=== PATIENT | male | born 1965 | race African-American/Black ===

== ENCOUNTER 2022-07-10 20:55 | Emergency (ER) | payer OTHER ==
[~2022-07-10] VITALS: Ht 182.9 cm; Wt 63.5 kg
--- NOTE | 2022-07-10 21:04 | NUR ---
pt biba care#[id number] fr home c/o 12/15 r flank pain x 1 wk now. pmh: gall stones, htn, dm, asthma. nkda.
[2022-07-10 21:05] VITALS: BP_SYST 122
--- NOTE | 2022-07-10 21:21 | NUR ---
Patient to ER bed 07 to gown for evaluation. Side rails up. Report given to AMADEO Yanes
[2022-07-10] MEDS ORDERED: NACL 0.9% 1,000 ML IV ONE (21:30)
[2022-07-10] MEDS ORDERED: KETOROLAC TROMETHAMINE 30 MG VIAL IVP ONE (21:30)
--- NOTE | 2022-07-10 21:30 | NUR ---
ER Dr. Skaggs at bedside examining patient.
[2022-07-10 21:53] LABS: BILIRUBIN,URINE NEGATIVE (NEGATIVE); BLOOD, URINE 2+ (NEGATIVE); COLOR,URINE YELLOW (YELLOW); GLUCOSE,URINE 3+ (NEGATIVE); KETONES,URINE TRACE (NEGATIVE); LEUKOCYTE ESTERASE ,URINE TRACE (NEGATIVE); NITRITE, URINE NEGATIVE (NEGATIVE); PROTEIN URINE TRACE (NEGATIVE)
[2022-07-10 22:02] LABS: CLARITY/URINE HAZY (CLEAR)
[2022-07-10 22:23] LABS: BACTERIA,URINE FEW /HPF (None Seen)
[2022-07-10 22:24] LABS: MUCUS,URINE None Seen /LPF (None Seen); URINE AMORPHOUS URATE 1+ /HPF (None Seen); WBC,URINE 20-50 /HPF (0-3)
[2022-07-10 23:11] LABS: BASOPHILS % (AUTO) 0.3 % (0.0-2.0); EOSINOPHILS # (AUTO) 0.1 K/uL (0.0-0.4); HEMATOCRIT 30.6 % (36-54); HEMOGLOBIN 10.1 g/dL (14.0-18.0); LYMPHOCYTES # (AUTO) 0.9 K/uL (1.0-5.5); LYMPHOCYTES % (AUTO) 8.3 % (20.5-51.5); MEAN CORPUSCULAR HEMOGLOBIN 33 pg (27-31); MEAN CORPUSCULAR HGB CONC 33 % (32-36); MEAN CORPUSCULAR VOLUME 98 fL (79.0-98.0); MONOCYTES # (AUTO) 1.1 K/uL (0.0-1.0); MONOCYTES % (AUTO) 9.5 % (1.7-9.3); NEUTROPHILS % (AUTO) 80.9 % (40.0-70.0); PLATELET COUNT (AUTO) 102 K/uL (130-430); RED BLOOD CELL COUNT(AUTO) 3.11 MIL/uL (4.2-6.2); RED CELL DISTRIBUTION WIDTH 16.3 % (9.0-15.0); WHITE BLOOD COUNT (AUTO) 11.2 K/uL (4.8-10.8)
[2022-07-10 23:19] LABS: CALCIUM 8.6 mg/dL (8.4-11.0); CREATININE 0.78 mg/dL (0.55-1.30)
[2022-07-10 23:23] LABS: ALBUMIN 1.3 g/dL (3.4-4.8); TOTAL BILIRUBIN 2.4 mg/dL (0.0-1.0)
[2022-07-11] MEDS ORDERED: CIPR500T5 PO (00:39)
[2022-07-11] MEDS ORDERED: IBUP-1969 PO (00:39)
[2022-07-11] MEDS ORDERED: HYDR-3917 PO (00:39)
[2022-07-11 01:19] VITALS: BP_SYST 141
--- NOTE | 2022-07-11 01:20 | NUR ---
Patient given written and verbal discharge instructions and verbalizes understanding. ER MD Dr. Skaggs discussed with patient the results and treatment provided. Patient in stable condition. ID arm band removed. IV catheter removed intact and dressing applied, no active bleeding. Rx of given. Patient educated on pain management and to follow up with PMD. Pain Scale 5/10. Opportunity for questions provided and answered. Medication side effect fact sheet provided. Pt was arranged for [facility] and is waiting in the waiting room at this time. [facility] ETA about 20 mins.
[2022-07-12] MEDS ORDERED: ACET-2634 PO (05:08)
[2022-07-12] MEDS ORDERED: LIDO1ADH22 TP (05:08)
== END 2022-07-11 01:20 | disposition home or self-care (01) ==
LOC: SED 20:55
DX: N39.0 Urinary tract infection, site not specified (principal); N20.0 Calculus of kidney; R10.9 Unspecified abdominal pain; E11.9 Type 2 diabetes mellitus without complications; Z79.899 Other long term (current) drug therapy
CPT/HCPCS: 99285; 74176; 96374; 96361; 80053; 81000; 83690; 85025; 87086; 87186; 36415; 76376; J1885; J7030

== ENCOUNTER 2022-07-12 04:53 | Emergency (ER) | payer OTHER ==
[~2022-07-12 04:53] MED LIST: CIPR500T5 PO; HYDR-3917 PO; IBUP-1969 PO
[2022-07-12 04:59] VITALS: BP_SYST 163
[2022-07-12] MEDS ORDERED: ACET-2634 PO (05:08)
[2022-07-12] MEDS ORDERED: LIDO1ADH22 TP (05:08)
[2022-07-12] MEDS ORDERED: KETOROLAC TROMETHAMINE 15 MG VIAL IM ONE (05:15)
[2022-07-12 05:44] VITALS: BP_SYST 142
== END 2022-07-12 05:44 | disposition home or self-care (01) ==
LOC: SED 04:53
DX: M54.50 Low back pain, unspecified (principal); E11.9 Type 2 diabetes mellitus without complications; W01.0XXA Fall on same level from slipping, tripping and stumbling without subsequent striking against object, initial encounter; Y93.89 Activity, other specified; Y92.89 Other specified places as the place of occurrence of the external cause; Y99.8 Other external cause status
CPT/HCPCS: 99283; 96372; J1885

== ENCOUNTER 2022-07-19 11:31 | Inpatient (IN) | payer OTHER ==
[~2022-07-19] VITALS: Ht 175.3 cm; Wt 77.1 kg
[~2022-07-19 11:31] MED LIST changes: +ACET-2634 PO; +LIDO1ADH22 TP
--- NOTE | 2022-07-19 11:42 | NUR ---
accucheck 454
[2022-07-19 11:46] VITALS: BP_SYST 170
--- NOTE | 2022-07-19 11:50 | NUR ---
Placed in room 01 . Placed on looper fixer, blood pressure machine and pulse oximeter. To gown for exam. Side rails up. Report given to AMADEO DOW.
--- NOTE | 2022-07-19 11:51 | NUR ---
pt biba awake and alert aox2. PT COMING FROM HOME. C/O HIGH BLOOD SUGAR AND ABDOMINAL PAIN. PT BS WAS 454 AT BEDSIDE. PT HAS HX OF DM2, HTN, HEP C, ASTHMA.
--- NOTE | 2022-07-19 11:51 | NUR ---
MD DR ALONZO AT BEDSIDE
[2022-07-19] MEDS ORDERED: NACL 0.9% 1,000 ML IV ONE ×2 (12:00→13:00)
[2022-07-19] MEDS ORDERED: ONDANSETRON HCL 4 MG/2 ML VIAL IVP ONE (12:00)
[2022-07-19 12:15] LABS: BASOPHILS % (AUTO) 0.2 % (0.0-2.0); EOSINOPHILS % (AUTO) 0.1 % (0.0-4.0); HEMATOCRIT 27.1 % (36-54); HEMOGLOBIN 8.7 g/dL (14.0-18.0); LYMPHOCYTES # (AUTO) 1.2 K/uL (1.0-5.5); LYMPHOCYTES % (AUTO) 7.2 % (20.5-51.5); MEAN CORPUSCULAR HEMOGLOBIN 32 pg (27-31); MEAN CORPUSCULAR HGB CONC 32 % (32-36); MEAN CORPUSCULAR VOLUME 100 fL (79.0-98.0); MONOCYTES % (AUTO) 5.9 % (1.7-9.3); NEUTROPHILS # (AUTO) 13.8 K/uL (1.8-7.7); NEUTROPHILS % (AUTO) 86.6 % (40.0-70.0); PLATELET COUNT (AUTO) 117 K/uL (130-430); RED BLOOD CELL COUNT(AUTO) 2.72 MIL/uL (4.2-6.2); RED CELL DISTRIBUTION WIDTH 16.8 % (9.0-15.0)
[2022-07-19 12:43] LABS: ALANINE AMINOTRANSFERASE 30 U/L (12-78); ALBUMIN 1.3 g/dL (3.4-4.8); ANION GAP 7 (5-15); ASPARTATE AMINOTRANSFERASE 59 U/L (10-37); CHLORIDE 105 mmol/L (98-107); CREATININE 1.06 mg/dL (0.55-1.30); GFR AFRICAN AMERICAN 93 mL/min (>90); LIPASE 30 U/L (73-393); TOTAL BILIRUBIN 3.8 mg/dL (0.0-1.0); UREA NITROGEN, BLOOD 28 mg/dL (8-21)
[2022-07-19 12:45] LABS: GLUCOSE 515 mg/dL (70-99)
[2022-07-19 12:55] LABS: BILIRUBIN,URINE NEGATIVE (NEGATIVE); BLOOD, URINE 1+ (NEGATIVE); CLARITY/URINE CLEAR (CLEAR); COLOR,URINE YELLOW (YELLOW); GLUCOSE,URINE 3+ (NEGATIVE); KETONES,URINE TRACE (NEGATIVE); LEUKOCYTE ESTERASE ,URINE NEGATIVE (NEGATIVE); NITRITE, URINE NEGATIVE (NEGATIVE); PH,URINE 5.5 (5.0-8.0); PROTEIN URINE NEGATIVE (NEGATIVE)
[2022-07-19] MEDS ORDERED: cefTRIAXone 1 GM VIAL ONE (12:59)
[2022-07-19] MEDS ORDERED: INSULIN REGULAR, HUMAN 10 UNITS/0.1 ML, 3 ML VIAL IVP ONE (13:00)
[2022-07-19] MEDS ORDERED: cefTRIAXone 1 GM in D5W 50 ML IV ONE (13:00)
[2022-07-19 13:10] LABS: ACETONE, SERUM POSITIVE (NEGATIVE)
[2022-07-19 13:56] LABS: BACTERIA,URINE None Seen /HPF (None Seen); WBC,URINE 0-3 /HPF (0-3); YEAST,URINE Rare /HPF (None Seen)
[2022-07-19] MEDS ORDERED: LIDOCAINE PATCH 5% 1 EA TP ONE (14:00)
[2022-07-19] MEDS ORDERED: MORPHINE 2 MG/ML INJ. SYRINGE IVP ONE (14:00)
--- NOTE | 2022-07-19 14:17 | NUR ---
ACCUCHECK, BLOOD SUGAR 342 NOTIFIED AMADEO DOW
--- NOTE | 2022-07-19 14:43 | NUR ---
PT REFUSED COVID SWAB, STATING HE "DOESN'T NEED IT".
[2022-07-19] MEDS ORDERED: DEXTROSE 50% JECT 50 ML DISP.SYRIN IVP PRN (15:00)
--- NOTE | 2022-07-19 17:23 | NUR ---
Admit bed requested Patient will be admitted to care of Dr. STUART. Admitted to TELE unit. Diagnosis HYPERCLYCEMIA/ DEHYDRATION Inpatient (Yes or No) YES Observation (Yes or No) NO Orientation concerns or request close to nursing station (Yes or No) NO Covid Status NEG On vent or bipap NO Isolation requirements NO Needs a sitter NO From Home (Yes or if No enter name of facility) HOME Requires Dialysis (Yes or No) NO Med Rec Completed (Yes of No) NO
--- NOTE | 2022-07-19 17:28 | NUR ---
MESSAGE LEFT FOR NEXT OF KIN , YUNIER WONG, TO GATHER MED REC INFO. NO ANSWER.
--- NOTE | 2022-07-19 17:30 | NUR ---
ATTEMP TO CALL FOR PT MED REC, UNSUCEESFUL. NO MESSAGE WAS LEFT DUE TO FULL MAILBOX
[2022-07-19] MEDS ORDERED: INSULIN REGULAR, HUMAN 10 UNITS/0.1 ML, 3 ML VIAL ONE (18:02)
[2022-07-19] MEDS: INSULIN REGULAR, HUMAN 100 UNITS/ML, 3 ML VIAL (humuLIN R) SUBCUT PRN ×2 (18:06→23:22)
[2022-07-19] MEDS: NACL 0.9% 1,000 ML IV SCH ×3 (18:07→21:06)
[2022-07-19 18:35] VITALS: BP_SYST 159
--- NOTE | 2022-07-19 18:55 | NUR ---
Patient will be admitted to care of DR STUART. Admitted to TELE unit. Will go to room 118B. Belongings list completed. Complete and up to date summary report printed. SBAR report to be given at bedside with opportunity for questions.
[2022-07-19 19:11] LABS: BARBITURATE, URINE NEGATIVE (NEG <=200); BENZODIAZEPINE, URINE NEGATIVE (NEG <=150); CANNABINOID, URINE NEGATIVE (NEG <=50); COCAINE, URINE NEGATIVE (NEG <=150); METHAMPHETAMINES SCREEN,URINE POSITIVE (NEG <=500); OPIATE, URINE NEGATIVE (NEG <=100); PHENCYCLIDINE SCREEN,URINE NEGATIVE (NEG <=25); URINE AMPHETAMINE POSITIVE (NEG <=500); URINE METHADONE NEGATIVE (NEG <=200); URINE OXYCODONE SCREEN NEGATIVE (NEG <=100)
[2022-07-19 19:12] LABS: UR TRICYCLIC ANTIDEPRESSANTS NEGATIVE (NEG <=300); URINE PROPOXYPHENE SCREEN NEGATIVE (NEG <=300)
--- NOTE | 2022-07-19 19:29 | NUR ---
admit to unit/ closing note Patient arrived to unit at 1835 via gurney from ER. Patient is Aox2. Patient resting, eyes closed, aroused to name. No ss of distress noted. Breathing is even and nonlabored, on room air. No facial grimace noted. NO SOB noted. Patient has been cleaned and repositioned. IV appears to be patent. No ss of infiltration noted. Patient oriented to room and use of call light. Patient is stable at this time. Vital signs obtained, as documented. Bed is locked, alarm on, and at lowest position. Call light within reach. report given to AMADEO Morales.
--- NOTE | 2022-07-19 19:38 | NUR ---
belongings patient's belongings have been documented. Patient has igloo lunch pail with home medications at bedside inside grocery that needs to be reconciled and imputed. Patient also has belongings of value silver chain, with patient black wallet with money ($120 total- 5x20's, 3x5's, and 5x1's) and cards, ID and Social security card. Called and spoke to security to have items documented and signed into safe. reported to noc nurse and charge nurse. Addendum: 07/19/22 at 2009 by Christina Hoover LVN belongings patient's belongings have been documented. Patient has igloo lunch pail with home medications at bedside inside grocery that needs to be reconciled and imputed. Patient also has belongings of value silver chain, with patient black wallet with money ($120 total- 5x20's, 3x5's, and 5x1's) and cards, ID and Social security card. Called and spoke to security to have items documented and signed into safe. reported to [facility] nurse and charge nurse. security reviewed and sealed items in envelope. item has been put in safe. copy of item sheet from security in patient's chart. noc nurse and charge nurse aware.
[2022-07-19 20:00] VITALS: BP_SYST 155
[2022-07-19] MEDS ORDERED: LORazepam 2 MG/ML VIAL IVP PRN (23:00)
[2022-07-20] VITALS (7 sets, daily range): BP systolic 145–159
--- NOTE | 2022-07-20 | NUR ---
patients medication counted and sealed in an envelop .assisted with a CHG bath ,incontinent of urine.had some yoghurt.ivf in progress as ordered
--- NOTE | 2022-07-20 02:00 | NUR ---
family update that pt has gallbladder
[2022-07-20] MEDS: NACL 0.9% 1,000 ML IV SCH ×3 (02:10→16:53)
--- NOTE | 2022-07-20 03:30 | NUR ---
Accuchek 146. pt states he feels alot better. awaits BFAST this morning
--- NOTE | 2022-07-20 04:41 | NUR ---
communicating denies pain .pt informed of cares involved for her treatment blood sugar done and updated
--- NOTE | 2022-07-20 08:00 | NUR ---
Opening Notes Patient is Aox3. Confused. No ss of distress noted. Breathing is even and nonlabored, on room air. No SOB noted. IV patent. IVF running. Vital signs obtained, as documented. Patient has been cleaned and repositioned. Bed is locked, alarm on, and at lowest position. Call light within reach.
[2022-07-20] MEDS: INSULIN REGULAR, HUMAN 100 UNITS/ML, 3 ML VIAL (humuLIN R) SUBCUT PRN ×4 (09:35→21:06)
--- NOTE | 2022-07-20 09:39 | NUR ---
NOTES AM BLOOD GLUCOSE WAS 220 MG/DL. 4 UNITS OF REGULAR INSULIN ADMINISTERED. PATIENT MORE AWAKE AND TALKING. IVF RUNNING. IV PATENT. ALL SAFETY PRECAUTIONS IN PLACE AND CALL LIGHT WITHIN REACH.
--- NOTE | 2022-07-20 12:00 | NUR ---
notes Patient is resting, eyes closed. Breathing is even and nonlabored, on room air. No SOB noted. No facial grimace noted. All safety precautions in place and call light within reach.
--- NOTE | 2022-07-20 16:00 | NUR ---
notes patient has been cleaned and repositioned. No distress noted. No facial grimace noted. Breathing is even and nonlabored, room air. NO SOB. Safety precautions in place and call light within reach.
[2022-07-20 16:53] LABS: BASOPHILS % (AUTO) 0.3 % (0.0-2.0); EOSINOPHILS # (AUTO) 0.1 K/uL (0.0-0.4); EOSINOPHILS % (AUTO) 0.4 % (0.0-4.0); HEMATOCRIT 28.2 % (36-54); HEMOGLOBIN 9.1 g/dL (14.0-18.0); LYMPHOCYTES # (AUTO) 1.3 K/uL (1.0-5.5); LYMPHOCYTES % (AUTO) 8.8 % (20.5-51.5); MEAN CORPUSCULAR HEMOGLOBIN 32 pg (27-31); MEAN CORPUSCULAR HGB CONC 32 % (32-36); MEAN CORPUSCULAR VOLUME 99 fL (79.0-98.0); MONOCYTES # (AUTO) 0.7 K/uL (0.0-1.0); MONOCYTES % (AUTO) 4.8 % (1.7-9.3); NEUTROPHILS # (AUTO) 12.7 K/uL (1.8-7.7); NEUTROPHILS % (AUTO) 85.7 % (40.0-70.0); RED BLOOD CELL COUNT(AUTO) 2.86 MIL/uL (4.2-6.2); RED CELL DISTRIBUTION WIDTH 16.8 % (9.0-15.0); WHITE BLOOD COUNT (AUTO) 14.8 K/uL (4.8-10.8)
[2022-07-20 16:59] LABS: CALCIUM 9.2 mg/dL (8.4-11.0); CREATININE 0.87 mg/dL (0.55-1.30)
[2022-07-20 17:08] LABS: PLATELET COUNT (AUTO) 108 K/uL (130-430)
[2022-07-20] MEDS ORDERED: ACETAMINOPHEN 325 MG TABLET PO PRN (18:15)
[2022-07-20] MEDS ORDERED: NALOXONE HCL 0.4 MG/ML AMP (NARCAN) IVP PRN (18:15)
[2022-07-20] MEDS ORDERED: HYDROcodone/ACETAMIN 10-325 MG TAB PO PRN (18:15)
[2022-07-20] MEDS ORDERED: HYDROcodone/ACETAMIN 5-325 MG TAB (NORCO/ VICODIN) PO PRN (18:15)
--- NOTE | 2022-07-20 18:22 | NUR ---
CONSULTATION PAGED/CALLED Reason for Consultation: BACTREMIA Person Who was Notified: YG, ANSWERING PUBLIC WORKS MANAGER Consulting Physician: DR. FAUSTIN Hooker Machine Tender Specialty: ID Ordering Physician: SHARON
--- NOTE | 2022-07-20 18:52 | NUR ---
CLOSING NOTES PATIENT IS RESTING, EYES CLOSED. NO SS OF DISTRESS NOTED. BREATHING IS EVEN AND NONLABORED, ON ROOM AIR. NO SOB NOTED. PATIENT DENIES SEVERE PAIN. IV PATENT. IVF RUNNING. PATIENT IN A COMFORTABLE POSITION. BED IS LOCKED, ALARM ON, AND AT LOWEST POSITION. CALL LIGHT WITHIN REACH. PATIENT IS STABLE. ALL NEEDS MET.
--- NOTE | 2022-07-20 19:30 | NUR ---
OPENING NOTE PT LYING IN BED AND EYES CLOSED. A/OX1 (PERSON). BREATHING EVEN AND NONLABORED. FOUND BED WET AND CHANGED ALL LINENS AND PROVIDED INCONTINENT CARE. PT TOLERATED CHANGING POSITION. BP 151/81. WILL KEEP MONITOR BP. NO S/S OF ACUTE DISTRESS OR PAIN. BED ALARM ON. SAFETY CHECKS IN PLACE. CALL LIGHT WITHIN REACH. CONTINUE TO MONITOR
[2022-07-20] MEDS ORDERED: VANCOMYCIN HCL 1 GM/NS PREMIX 250 ML IV ONE (20:00)
[2022-07-20] MEDS ORDERED: VANCOMYCIN HCL 1000 MG/VIAL IV ONE (20:54)
--- NOTE | 2022-07-20 22:34 | NUR ---
NEW MED PT'S BP IS 160/80. CALLED TO DR. HERRERA AND ORDERED CLONIDINE 0.2mg PO, Q4H, WHEN SBP>160.
[2022-07-20] MEDS ORDERED: cloNIDine HCL 0.2 MG TABLET PO PRN (22:45)
[2022-07-21] VITALS (8 sets, daily range): BP systolic 150–161
--- NOTE | 2022-07-21 00:45 | NUR ---
BP BP 159/86. BREATHING EVEN AND NONLABORED. SAFETY CHECKS IN PLACE. CALL LIGHT IN REACH. CONTINUE TO MONITOR
[2022-07-21] MEDS: NACL 0.9% 1,000 ML IV SCH ×2 (02:54→09:00)
--- NOTE | 2022-07-21 03:05 | NUR ---
ROUNDING NOTE PT LYING IN BED AND EYES CLOSED. BREATHING NONLABORED. NO S/S OF ACUTE DISTRESS OR PAIN. CONTINUE TO MONITOR
--- NOTE | 2022-07-21 04:26 | NUR ---
ROUNDING NOTE PT LYING IN BED. INCONTINENT. PROVIDE INCONTINENT CARE. CHANGED NEW BLANKET. BREATHING EVEN, NO PAIN REPORTED. BED ALARM ON. SAFETY CHECKS IN PLACE. CALL LIGHT IN REACH. CONTINUE TO MONITOR
[2022-07-21] MEDS: INSULIN REGULAR, HUMAN 100 UNITS/ML, 3 ML VIAL (humuLIN R) SUBCUT PRN ×4 (06:25→20:25)
--- NOTE | 2022-07-21 06:30 | NUR ---
GLUCOSE CHECK PT'S MORNING GLUCOSE 253. GIVEN 6 UNITS HUMULIN R INSULIN ORDERED.
[2022-07-21 07:16] LABS: BASOPHILS % (AUTO) 0.1 % (0.0-2.0); EOSINOPHILS % (AUTO) 0.3 % (0.0-4.0); HEMATOCRIT 27.6 % (36-54); LYMPHOCYTES # (AUTO) 1.1 K/uL (1.0-5.5); LYMPHOCYTES % (AUTO) 7.1 % (20.5-51.5); MEAN CORPUSCULAR HEMOGLOBIN 32 pg (27-31); MEAN CORPUSCULAR HGB CONC 32 % (32-36); MEAN CORPUSCULAR VOLUME 99 fL (79.0-98.0); MONOCYTES # (AUTO) 0.5 K/uL (0.0-1.0); MONOCYTES % (AUTO) 3.5 % (1.7-9.3); NEUTROPHILS # (AUTO) 13.5 K/uL (1.8-7.7); PLATELET COUNT (AUTO) 97 K/uL (130-430); WHITE BLOOD COUNT (AUTO) 15.2 K/uL (4.8-10.8)
--- NOTE | 2022-07-21 07:16 | NUR ---
CLOSING NOTE PT LYING IN BED AND EYES CLOSED. BREATHING EVEN AND NONLABORED. NO S/S OF ACUTE DISTRESS OR PAIN. BED ALARM ON. SAFETY CHECKS IN PLACE. CALL LIGHT WITHIN REACH. ENDORSED TO DAY SHIFT NURSE
[2022-07-21 07:27] LABS: ALBUMIN 0.9 g/dL (3.4-4.8); CALCIUM 9.2 mg/dL (8.4-11.0); CREATININE 0.76 mg/dL (0.55-1.30); TOTAL BILIRUBIN 3.2 mg/dL (0.0-1.0)
--- NOTE | 2022-07-21 08:00 | NUR ---
Opening Notes AOx3. Very sleepy, arousable to name. No ss of distress noted. Breathing is even and nonlabored, on room air. Vital signs obtained, as documented. Patient has been cleaned and repositioned comfortably. Iv patent. IVF running. Bed is locked, alarm on, and at lowest position. Call light within each.
[2022-07-21] MEDS: LR 1,000 ML IV SCH ×3 (10:19→20:21)
[2022-07-21] MEDS: VANCOMYCIN HCL 1,000 MG in NS 250 ML IV SCH ×2 (10:37→21:07)
--- NOTE | 2022-07-21 10:37 | NUR ---
CRITICAL LAB: Critical Chloride of 122. Dr. Burdick made aware. MD to see patient.
[2022-07-21] MEDS ORDERED: POTASSIUM CHLORIDE 40 MEQ, LIDOCAINE JECT 2% PF 100 MG 50 MG in NS 250 ML IV ONE (11:00)
--- NOTE | 2022-07-21 11:12 | NUR ---
CONSULTATION PAGED/CALLED Reason for Consultation: DM Person Who was Notified: DR GODDARD SAYED([phone]) Consulting Physician: DR GODDARD SAYJORDAN Wound Treatment Rn Specialty: GUEST RELATIONS REPRESENTATIVE Ordering Physician: DR HERRERA
--- NOTE | 2022-07-21 12:00 | NUR ---
Notes Patient was cleaned and repositioned. IVF running. No ss of distress noted. No SOB noted. No facial grimace noted. Patient comfortable and stable. Bed locked, alarm on, and at lowest position. Call light within reach.
[2022-07-21] MEDS: CEFEPIME 2 GM in D5W 100 ML IV SCH (12:31)
--- NOTE | 2022-07-21 13:36 | NUR ---
Dietitian Recommendations * Continue 45g CCHO, Puree diet w/ Glucerna TID * Ordered: Snacks BID * Encourage good PO intakes Submitted for STEF Bloom by Dipti Good, MPH, RD Please see Nutrition Assessment for further details. Thanks!
--- NOTE | 2022-07-21 14:30 | NUR ---
notes Dr. Geraldine Bolton came to see patient at bedside.
--- NOTE | 2022-07-21 16:30 | NUR ---
Notes Patient resting comfortably. Patient has been repositioned. Breathing is even and nonlabored, room air. no facial grimace noted. No distress noted. No SOB noted. IVF running. Iv patent. All safety precautions in place and call light within reach.
--- NOTE | 2022-07-21 18:40 | NUR ---
CLOSING NOTES PATIENT IN BED, RESTING COMFORTABLY, WATCHING TV. BREATHING IS EVEN AND NONLABORED, ON ROOM AIR. NO SS OF RESPIRATORY DISTRESS NOTED. DENIES PAIN. NO FACIAL GRIMACE NOTED. IV PATENT. IVF RUNNING. PATIENT IS STABLE. ALL NEEDS MET. BED IS LOCKED, ALARM ON, AND AT LOWEST POSITION. CALL LIGHT WITHIN REACH.
--- NOTE | 2022-07-21 19:30 | NUR ---
OPENING NOTE PT LYING IN BED AND EYES CLOSED. BREATHING EVEN AND NONLABORED ON RA. VSS. IV MEDICATION RUNNING. OFFERED SKIN CARE ON THE FACE BUT PT REFUSED. BED ALARM ON. SAFETY CHECKS IN PLACE. CALL LIGHT IN REACH. CONTINUE TO MONITOR
[2022-07-21] MEDS: INSULIN GLARGINE 100 UNITS/ML, 10 ML VIAL SUBCUT SCH (20:24)
--- NOTE | 2022-07-21 21:24 | NUR ---
ROUNDING NOTE PT LYING IN BED AND EYES CLOSED. AROUSED TO CALLING NAME. NO PAIN REPORTED. SAFETY CHECKS IN PLACE. BED ALARM ON. CONTINUE TO MONITOR
--- NOTE | 2022-07-21 22:50 | NUR ---
INCONTINENT CARE PT INCONTINENT. PROVIDE INCONTINENT CARE. CHANGED LINENS AND GOWN. PT TOLERATED CHANGING POSITION. SAFETY CHECKS IN PLACE. BED ALARM ON. CALL LIGHT IN REACH. CONTINUE TO MONITOR
[2022-07-22] VITALS: BP_SYST 150
--- NOTE | 2022-07-22 00:39 | NUR ---
DECREASED BT PT'S TEMPT 96.5 F. NO S/S OF ACUTE DISTRESS OR PAIN. COVERED PT WITH WARM BLANKET. CONTINUE TO MONITOR
[2022-07-22] MEDS: LR 1,000 ML IV SCH ×3 (01:38→11:00)
--- NOTE | 2022-07-22 03:30 | NUR ---
ROUNDING NOTE PT LYING IN BED. AND EYES CLOSED. PT INCONTINENT. PROVIDED INCONTINENT CARE. BED ALRAM Addendum: 07/22/22 at 0422 by Ramos Garcia LVN BED ALARM ON. SAFETY CHECKS IN PLACE. CONTINUE TO MONITOR
--- NOTE | 2022-07-22 05:20 | NUR ---
ROUNDING NOTE PT LYING IN BED AND TRYING TO GET OUT OF THE BED. PT AGITATED. REASSURED PT BUT PT YELLING AND ASKING HELP HIM TO GET OUT OF THE BED. Addendum: 07/22/22 at 0530 by Ramos Garcia LVN PT CALMED DOWN NOW. BED ALARM ON. SAFETY CHECKS IN PLACE. CONTINUE TO MONITOR
--- NOTE | 2022-07-22 05:56 | NUR ---
ROUNDING NOTE PT LYING OPPOSITE DIRECTION OF THE BED. TRIED TO GET OUT OF THE BED. REPOSITIONED PT SAFELY AND PROVIDED INCONTINENT CARE. BED ALARM ON. SAFETY CHECKS IN PLACE. CONTINUE TO MONITOR
[2022-07-22] MEDS: INSULIN REGULAR, HUMAN 100 UNITS/ML, 3 ML VIAL (humuLIN R) SUBCUT PRN ×3 (06:22→17:56)
--- NOTE | 2022-07-22 07:17 | NUR ---
CLOSING NOTE PT LYING IN BED AND EYES CLOSED. BREATHING EVEN AND NONLABORED ON RA. IV LR RUNNING @200ml. BED ALARM ON. SAFETY CHECKS IN PLACE. CALL LIGHT IN REACH. ENDORSED TO DAY SHIFT NURSE
[2022-07-22 08:00] VITALS: BP_SYST 142
--- NOTE | 2022-07-22 08:00 | NUR ---
OPENING NOTES PATIENT IS AOX3. FORGETFUL. NO SS OF DISTRESS NOTED. BREATHING IS EVEN AND NONLABORED, ON ROOM AIR. VITAL SIGNS OBTAINED, DOCUMENTED. DENIES PAIN. NO SOB NOTED. NO FACIAL GRIMACE NOTED. IV PATENT. BED IS JULIO,D ALARM ON, AND AT LOWEST POSITION. CALL LIGHT WITHIN REACH.
[2022-07-22 08:50] LABS: BASOPHILS % (AUTO) 0.1 % (0.0-2.0); EOSINOPHILS % (AUTO) 0.4 % (0.0-4.0); HEMOGLOBIN 9.2 g/dL (14.0-18.0); LYMPHOCYTES # (AUTO) 1.1 K/uL (1.0-5.5); LYMPHOCYTES % (AUTO) 8.9 % (20.5-51.5); MEAN CORPUSCULAR HEMOGLOBIN 32 pg (27-31); MEAN CORPUSCULAR HGB CONC 32 % (32-36); MEAN CORPUSCULAR VOLUME 99 fL (79.0-98.0); MONOCYTES # (AUTO) 0.3 K/uL (0.0-1.0); MONOCYTES % (AUTO) 2.3 % (1.7-9.3); NEUTROPHILS # (AUTO) 11.1 K/uL (1.8-7.7); NEUTROPHILS % (AUTO) 88.3 % (40.0-70.0); PLATELET COUNT (AUTO) 68 K/uL (130-430); RED BLOOD CELL COUNT(AUTO) 2.93 MIL/uL (4.2-6.2); RED CELL DISTRIBUTION WIDTH 17.4 % (9.0-15.0); WHITE BLOOD COUNT (AUTO) 12.6 K/uL (4.8-10.8)
[2022-07-22 08:51] LABS: CALCIUM 9.1 mg/dL (8.4-11.0); CREATININE 0.65 mg/dL (0.55-1.30)
--- NOTE | 2022-07-22 09:00 | NUR ---
NOTES PAGED DR. HERRERA FOR CRITICAL. WAITING FOR CALL BACK.
[2022-07-22] MEDS: VANCOMYCIN HCL 1,000 MG in NS 250 ML IV SCH ×2 (09:17→21:01)
[2022-07-22] MEDS: CEFEPIME 2 GM in D5W 100 ML IV SCH (09:19)
[2022-07-22] MEDS: INSULIN GLARGINE 100 UNITS/ML, 10 ML VIAL SUBCUT SCH ×2 (09:19→21:05)
--- NOTE | 2022-07-22 09:21 | NUR ---
NOTES 10 UNITS OF LANTUS INSULIN ADMINISTERED PER STANDARD ORDER. AM BLOOD GLUCOSE WAS 200 MG/DL. PATIENT IS COMFORTABLE. NO SS OF DISTRESS NOTED. NO FACIAL GRIMACE NOTED. DENIES PAIN. PATIENT HAS BEEN CLEANED AND REPOSITIONED. BED LOCKED, ALARM ON, AND AT LOWEST POSITION. CALL LIGHT WITHIN REACH.
--- NOTE | 2022-07-22 09:55 | NUR ---
notes MD aware of critical lab values, new orders received. MD to see patient.
--- NOTE | 2022-07-22 12:00 | NUR ---
Notes Patient is resting. Has been cleaned and repositioned. No ss of distress noted. Breathing is even and nonlabored, on room air. Patient denies pain. Stable. Bed locked, alarm on, and at lowest position. Call light within reach.
[2022-07-22 12:20] VITALS: BP_SYST 146
--- NOTE | 2022-07-22 15:02 | NUR ---
notes patient left for MRI
[2022-07-22] MEDS ORDERED: POTASSIUM CHLORIDE 40 MEQ, LIDOCAINE JECT 2% PF 100 MG 50 MG in NS 250 ML IV ONE (16:00)
--- NOTE | 2022-07-22 16:10 | NUR ---
ST EVALUATION COMPLETED. ST TX NOT INDICATED AT THIS TIME. PT UNABLE TO DEMONSTRATE A SAFE EFFECTIVE COUGH/SWALLOW. RECOMMEND NPO WITH ALTERNATIVE MEANS OF NUTRITION.
--- NOTE | 2022-07-22 16:56 | NUR ---
NOTES PATIENT'S IV GOT INFILTRATED. NEW IV INSERTED TO RIGHT FOREARM, 20 G. BLOOD RETURN. FLUSHES WELL. DRESSING INTACT, C,D,& I. IVF RUNNING. PATIENT HAS BEEN CLEANED AND REPOSITIONED. BED LOCKED, ALARM ON, AND AT LOWEST POSITION. CALL LIGHT WITHIN REACH.
[2022-07-22 17:06] VITALS: BP_SYST 154
--- NOTE | 2022-07-22 19:02 | NUR ---
CLOSING NOTES PATIENT RESTING, EYES CLOSED. APPEARS TO BE SLEEPING. BREATHING IS EVEN AND NONLABORED, ON ROOM AIR. NO SS OF DISTRESS NOTED. NO SOB NOTED. NO FACIAL GRIMACE. IV PATENT. IVF RUNNING. PATIENT IS STABLE. ALL NEEDS MET. BED IS LOCKED, ALARM ON, AND AT LOWEST POSITION. CALL LIGHT WITHIN REACH.
[2022-07-22 20:00] VITALS: BP_SYST 145
[2022-07-22] MEDS: KCL 20 mEq in D5W 1000 mL 1,000 ML IV SCH (20:59)
--- NOTE | 2022-07-22 21:00 | NUR ---
ASSESSMENT COMPLETED BED BATH GIVEN TURNED AND REPOSITIONED PLAN OF CARE REVIEWED WILL CONTIUE TO MONITOR AND ASSESS
[2022-07-23] VITALS (43 sets, daily range): BP systolic 74–139
[2022-07-23] MEDS: KCL 20 mEq in D5W 1000 mL 1,000 ML IV SCH (03:19)
--- NOTE | 2022-07-23 06:00 | NUR ---
BLOOD GLUCOSE 170MG/DL NO COVERAGE PT NPO O2 AT 3L NC VIA MOUTH PT IS MOUT BREATHER ALL NEEDS ANTICIPATED AND MET
[2022-07-23 06:35] LABS: ALBUMIN 0.8 g/dL (3.4-4.8); CREATININE 0.88 mg/dL (0.55-1.30); TOTAL BILIRUBIN 2.5 mg/dL (0.0-1.0)
[2022-07-23 07:17] LABS: HEMATOCRIT 32.6 % (36-54); HEMOGLOBIN 10.1 g/dL (14.0-18.0); MEAN CORPUSCULAR HEMOGLOBIN 31 pg (27-31); MEAN CORPUSCULAR HGB CONC 31 % (32-36); MEAN CORPUSCULAR VOLUME 100 fL (79.0-98.0); PLATELET COUNT (AUTO) 77 K/uL (130-430); RED BLOOD CELL COUNT(AUTO) 3.25 MIL/uL (4.2-6.2); WHITE BLOOD COUNT (AUTO) 20.3 K/uL (4.8-10.8)
--- NOTE | 2022-07-23 08:00 | NUR ---
Initial note: patient is lethargic. Open his eyes by touching. Assessment is done and vital signs checked. Bed in the lowest position and side rails x3 up. Call light in reach. Blood pressure is 102/61 and O2 is 83% with 3L NC. Nurse provided simple mask and increased O2 to 10L. Patient's O2 sat becomes 93%. Will continue to monitor.
[2022-07-23] MEDS: VANCOMYCIN HCL 1,000 MG in NS 250 ML IV SCH ×2 (08:44→20:55)
[2022-07-23] MEDS: INSULIN GLARGINE 100 UNITS/ML, 10 ML VIAL SUBCUT SCH ×2 (08:51→20:54)
[2022-07-23 09:34] LABS: BAND % (MANUAL) 13 % (0-6); EOSINOPHILS % (MANUAL) 1 % (0-7); LYMPHOCYTES % (MANUAL) 1 % (20-46); MONOCYTES % (MANUAL) 1 % (0-11)
[2022-07-23 09:35] LABS: BASOPHILS % (MANUAL) 0 % (0-2)
--- NOTE | 2022-07-23 10:01 | NUR ---
Note: called Dr. Burdick and reported patient's condition and lab result. New order received.
[2022-07-23] MEDS: CEFEPIME 2 GM in D5W 100 ML IV SCH (10:23)
--- NOTE | 2022-07-23 11:00 | NUR ---
Note: patient's blood pressure is 75/48. Called and reported to Dr. Burdick for the ABG and CXR results. New order received to transfer to ICU and start bipap there. Surgery Scheduler consult Dr. Cesilia Gaitan for consult.
--- NOTE | 2022-07-23 11:11 | NUR ---
CONSULTATION PAGED/ CALLED REASON FOR CONSULTATION: PNA, SOB, RESP FAILURE PERSON WHO WAS NOTIFIED: EXCHANGE PHONE SERVICE CONSULTING PHYSICIAN: Abdiel KRISHNA BIOMASS PRODUCTION MANAGER SPECIALTY: PULMO ORDERING PHYSICIAN: Ben MAURO
--- NOTE | 2022-07-23 11:19 | NUR ---
Note: patient is waiting for bed transferring to ICU. Respirtoy therapy at the bedside. Setting up the Bipap. patient becomes non-responsive and desaturating and blood pressure is dropping. Called rapid response. Dr. Covington creative writing teacher is here assess patient and intubate patient. Patient is transferred to ICU bed 6. Called Millie the next of kin and made aware.
[2022-07-23] MEDS ORDERED: NOREPINEPHRINE 4 MG/4 ML VIAL IV ONE (11:41)
--- NOTE | 2022-07-23 13:14 | NUR ---
RT NOTES 1100 PT PLACED ON BIPAP PER DR MCKEON. POST 10 MIN, PT NOT RECEIVING LUNG VOLUMES AND PT DESAT, RAPID CALLED AND DR CABRAL INTUBATED PT @1120. CO2 COLOR CHANGE, PARTHA ARMENTA HEARD, ETT 7.5@24CM LL. PT MOVED TO ICU. WILL MONITOR. Addendum: 07/23/22 at 1320 by Irene Ozuna RT Amended: Links added.
[2022-07-23] MEDS ORDERED: IPRATROPIUM/ALBUTEROL SULFATE 3 ML AMPUL.NEB (DUONEB) INH PRN ×2 (13:15→13:30)
[2022-07-23] MEDS ORDERED: METHYLPREDNISOLONE SOD SUCC 40 MG/ML VIAL IVP ONE ×2 (13:15→16:00)
[2022-07-23] MEDS ORDERED: ASPIRIN 81 MG TAB.CHEW PO ONE (13:15)
[2022-07-23] MEDS ORDERED: METHYLPREDNISOLONE SOD SUCC 40 MG/ML VIAL IVP SCH (13:15)
[2022-07-23] MEDS ORDERED: NS 500 ML IV ONE (13:15)
[2022-07-23] MEDS ORDERED: PANTOPRAZOLE SODIUM 40 MG/VIAL (PROTONIX) IVP ONE (13:15)
[2022-07-23] MEDS: 0.45% NACL 1,000 ML IV SCH ×2 (13:23→22:41)
[2022-07-23 13:57] LABS: INR 2.5 (0.80-1.20); PROTHROMBIN TIME 24.5 SECS (9.5-12.5)
[2022-07-23] MEDS ORDERED: ALBUMIN HUMAN 25% 100 ML IV SCH (14:00)
[2022-07-23] MEDS: HYDROCORTISONE SOD SUCC 100 MG/2 ML VIAL IVP SCH ×2 (14:00→21:52)
[2022-07-23] MEDS ORDERED: NOREPINEPHRINE BITARTRATE 4 MG in D5W 246 ML IV PRN (14:00)
[2022-07-23] MEDS: PROPOFOL DRIP 100 ML IV PRN (14:03)
[2022-07-23] MEDS: ALBUMIN HUMAN 25% 100 ML IV SCH ×3 (15:22→22:40)
[2022-07-23] MEDS ORDERED: SODIUM BICARBONATE 8.4% VIAL 50 MEQ/50 ML VIAL INJ ONE (15:45)
[2022-07-23] MEDS ORDERED: NOREPINEPHRINE BITARTRATE 32 MG in D5W 218 ML IV PRN (16:00)
[2022-07-23] MEDS: NAFCILLIN SODIUM 2 GM in NS 100 ML IV SCH (18:23)
--- NOTE | 2022-07-23 19:15 | NUR ---
Opening notes Received report from endorsing morning RN shift for continuity of care. Patient is lying in bed with IVF 1/2 NS @ 100 mL/hr, propofol @ 5 mcg/kg/min, and levophed @ 0.1 mcg/kg/min. Patient's vital signs blood pressure 116/69, heart rate 92, respirations 29, and SPO2 98% on ventilator. Ventilator settings AC 20, tidal volume 450, FIO2 70%, and peep of 5. OGT is in placed, glucerna 1.2 running @ 10 mL/hr, H2O flush 150 q 4. Bed is locked and in lowest position, call light button within reach, fall and safety precautions is in place.
--- NOTE | 2022-07-23 19:22 | NUR ---
1133- Patient arrived to ICU 6 on monitor in bed. Connected to room monitors, assessment and VS taken (see EMR). 1227- Dr. Gaitan here at bedside. New orders rec'd. 1235- Dr. Burdick called for new orders for ICU transfer. New orders rec'd. 1245- Spoke to mother via facetime with caregiver. Update don patient condition. 1538- Dr. Gaitan made aware of ABG results. New orders rec'd.
[2022-07-23] MEDS: PANTOPRAZOLE SODIUM 40 MG/VIAL (PROTONIX) IVP SCH (20:55)
[2022-07-23] MEDS: METHYLPREDNISOLONE SOD SUCC 40 MG/ML VIAL IVP SCH (21:52)
--- NOTE | 2022-07-23 22:30 | NUR ---
THOMAS CATH: # 12 FR Thomas catheter with 10 cc bulb inserted with use of sterile technique. Bulb inflated with 10 cc sterile water. Immediate return of 5 cc yellow urine noted. Bedside drainage bag placed below level of bladder. Pt tolerated procedure well.
[2022-07-24] VITALS (32 sets, daily range): BP systolic 91–136
[2022-07-24] MEDS: NAFCILLIN SODIUM 2 GM in NS 100 ML IV SCH ×5 (00:15→23:51)
[2022-07-24] MEDS: PROPOFOL DRIP 100 ML IV PRN ×2 (02:04→19:28)
[2022-07-24] MEDS: METHYLPREDNISOLONE SOD SUCC 40 MG/ML VIAL IVP SCH ×4 (03:34→21:26)
[2022-07-24 05:51] LABS: BASOPHILS % (AUTO) 0.1 % (0.0-2.0); HEMATOCRIT 23.3 % (36-54); HEMOGLOBIN 7.4 g/dL (14.0-18.0); LYMPHOCYTES # (AUTO) 1.5 K/uL (1.0-5.5); LYMPHOCYTES % (AUTO) 5.8 % (20.5-51.5); MEAN CORPUSCULAR HEMOGLOBIN 31 pg (27-31); MEAN CORPUSCULAR HGB CONC 32 % (32-36); MEAN CORPUSCULAR VOLUME 99 fL (79.0-98.0); MONOCYTES # (AUTO) 0.4 K/uL (0.0-1.0); MONOCYTES % (AUTO) 1.5 % (1.7-9.3); NEUTROPHILS # (AUTO) 24.1 K/uL (1.8-7.7); NEUTROPHILS % (AUTO) 92.6 % (40.0-70.0); RED BLOOD CELL COUNT(AUTO) 2.35 MIL/uL (4.2-6.2)
[2022-07-24] MEDS: HYDROCORTISONE SOD SUCC 100 MG/2 ML VIAL IVP SCH (06:00)
[2022-07-24 06:23] LABS: ALBUMIN 1.8 g/dL (3.4-4.8); CALCIUM 8.1 mg/dL (8.4-11.0); CREATININE 2.17 mg/dL (0.55-1.30)
--- NOTE | 2022-07-24 06:28 | NUR ---
Called Dr. Burdick regarding urine output. Urine output for the whole shift was only 150 mL. Received new order, see emar.
[2022-07-24] MEDS ORDERED: FUROSEMIDE 20 MG/2 ML VIAL IVP ONE (06:29)
[2022-07-24] MEDS ORDERED: FUROSEMIDE 20 MG/2 ML VIAL ONE (06:59)
[2022-07-24] MEDS: IPRATROPIUM/ALBUTEROL SULFATE 3 ML AMPUL.NEB (DUONEB) INH SCH ×5 (08:00→23:30)
[2022-07-24 08:18] LABS: PLATELET COUNT (AUTO) 38 K/uL (130-430)
[2022-07-24] MEDS: VANCOMYCIN HCL 1,000 MG in NS 250 ML IV SCH (08:55)
[2022-07-24] MEDS: PANTOPRAZOLE SODIUM 40 MG/VIAL (PROTONIX) IVP SCH ×2 (08:56→21:23)
[2022-07-24] MEDS: INSULIN GLARGINE 100 UNITS/ML, 10 ML VIAL SUBCUT SCH ×2 (08:57→21:31)
[2022-07-24] MEDS ORDERED: PANTOPRAZOLE SODIUM 40 MG/VIAL (PROTONIX) IVP SCH (09:00)
[2022-07-24] MEDS ORDERED: ASPIRIN 81 MG TAB.CHEW PO SCH (09:00)
--- NOTE | 2022-07-24 11:31 | NUR ---
Nutrition F/U RD reviewed pts current EMR including diet hx, physician notes, nursing notes, pertinent labs/meds/procedures, care trends and care activity. Subjective Information RD attended ICU rounds and s/w primary RN regarding pt. He reports that a RR was called on this pt and he was transferred to ICU and intubated. He is on Glucerna 1.2 @ 30mL/hr via OGT; tolerating well so far. RN reports that pts liver and kidney function are declining. RD witnessed Vetot of 14.0. Per EMR review: Kye 14; Labs: A1c 9.36 H, WBC 26.0 H, Na 155H, Cl 123* H, BUN 44 H, 2.17H, BG 158H. Pt is not currently meeting nutritional needs. Current Diet Order/Nutrition Support Glucerna 1.2 @ 30mL/hr, FWF 150mL q4h via OGT x 1 day % PO intake NPO Last BM None documented NEW Estimated Energy Expenditure (kcals/day) 1961 kcal ([facility]U 2003 vent/ICU. MSJ 1595, Tmax37.17, Vetot 14 ) Estimated Protein Required (g/day) 46-73 (0.6-1 g/kg CBW d/t critical illness, renal labs) Estimated Fluid Required (l/day) Refer to MD (renal labs) Problem/Etiology/Signs/Symptoms * Inadequate oral intake R/T decreased appetite AEB poor PO intake records (ongoing). *Altered nutrition related labs RT kidney and liver disease AEB elevated BUN/Cre and elevated t.Bili and AST (NEW) NEW Expected Outcomes/Goals * EN tolerated at goal rate, EN provides >95% estimated nutritional needs, improvements in skin integrity, nutrition-related labs trending WNL, weight maintenance, BM q 1-3 days Dietitian Recommendations * Ordered Nepro @ 45mL/hr, FWF 150mL q4h via OGT Provides:1944 kcal, 87g PRO, 1685mL free water (inc FWF) Meets: 99% of est kcal, 119% of upper PRO Follow up *High risk: f/u w/ pt in 2-3days GS, MPH, RD
--- NOTE | 2022-07-24 11:34 | NUR ---
Dietitian Recommendations * Ordered Nepro @ 45mL/hr, FWF 150mL q4h via OGT Provides:1944 kcal, 87g PRO, 1685mL free water (inc FWF) Meets: 99% of est kcal, 119% of upper PRO GS, MPH, RD Please refer to Nutrition F/U for further details. Thanks!
[2022-07-24] MEDS: 0.45% NACL 1,000 ML IV SCH ×2 (12:19→23:51)
[2022-07-24] MEDS: INSULIN REGULAR, HUMAN 100 UNITS/ML, 3 ML VIAL (humuLIN R) SUBCUT PRN ×3 (12:22→21:32)
--- NOTE | 2022-07-24 14:29 | NUR ---
Called Dr. Vazquez with a consult, spoke with Nicky from doctors office Dr. Carter business communications instructor today
--- NOTE | 2022-07-24 16:30 | NUR ---
SPOKE WITH TEDDY ALVAREZ SOFTWARE SECURITY CONSULTANT. DISCUSSED PATIENT POSSIBLE TRANSFER TO [facility]. DISCUSSED FROM OTONIEL AT [facility] OVER THE PHONE AND PROVIDED AN UPDATE ON PATIENT'S STATUS. NO TRANSFER SCHEDULED AT THIS TIME.
--- NOTE | 2022-07-24 16:36 | NUR ---
Epic Professional re: amphetamine abuse Telephone call made to the mother, Tracy Bee, to discuss the patient's prior level of functioning and possible amphetamine abuse. Per mother, the patient resides in an upstairs apartment alone. He is using a rolator walker and recently had IHSS in place. he receives approximately 358 a week. He has minimal familial support here in [place], as the majority of his family resides in [place]. his IHSS provider is a friend's girlfriend. The mother is unsure who his PCP is. The discharge plan is to return back home, with hopes of being able to move to a downstairs apartment. I inquired about the patient ever having a drug abuse problem. Per mother, the patient did abuse drugs in the past, but stopped when he went to alf for nearly 3 years. i inquired about his drug of choice, and she indicated he used marijuana and heroin. She states he no longer uses drugs. I advised her that the patient tested positive for illicit drugs at admission. She states she believes his friends left the bag at his house, but it isn't her sons. I spoke about services that assist with sobriety and counseling services if the patient's are interested in a sobriety program. The mother was insistent that the patient was not involved in such activity anymore. If the patient is abusing illicit drugs, the patient is appropriate for the [place] [facility] program. A follow up call was made to the patient's healthcare science specialist, Millie Nelson, requesting that she return my call.
[2022-07-24] MEDS ORDERED: ALBUMIN HUMAN 5% 250 ML IV ONE (16:45)
[2022-07-24] MEDS ORDERED: BUMEX 1 MG/4 ML VIAL IVP ONE (16:45)
--- NOTE | 2022-07-24 17:00 | NUR ---
DR RHODES, DR HERRERA, AND DR SAUL MADE AWARE OF DECREASED URINE OUTPUT. NEW ORDERS NOTED.
[2022-07-24] MEDS ORDERED: fentaNYL CITRATE/PF 100 MCG/2 ML AMP IVP PRN (17:45)
[2022-07-24] MEDS ORDERED: LORazepam 2 MG/ML VIAL IVP PRN (17:45)
[2022-07-24] MEDS ORDERED: ACETAMINOPHEN 650 MG/20.3 ML UDC GT PRN ×2 (20:38→21:00)
[2022-07-24] MEDS: LEVOFLOXACIN 250 MG/D5W 50 ML IV SCH (21:25)
[2022-07-24 22:57] LABS: BILIRUBIN,URINE NEGATIVE (NEGATIVE); BLOOD, URINE 2+ (NEGATIVE); CLARITY/URINE SL CLOUDY (CLEAR); COLOR,URINE YELLOW (YELLOW); GLUCOSE,URINE NEGATIVE (NEGATIVE); KETONES,URINE TRACE (NEGATIVE); LEUKOCYTE ESTERASE ,URINE TRACE (NEGATIVE); NITRITE, URINE NEGATIVE (NEGATIVE); PH,URINE 5.5 (5.0-8.0); PROTEIN URINE 1+ (NEGATIVE)
[2022-07-24 23:38] LABS: RBC,URINE 20-50 /HPF (0-3)
[2022-07-24 23:39] LABS: BACTERIA,URINE MODERATE /HPF (None Seen); MUCUS,URINE 1+ /LPF (None Seen)
[2022-07-25] VITALS (46 sets, daily range): BP systolic 90–121
[2022-07-25] MEDS: IPRATROPIUM/ALBUTEROL SULFATE 3 ML AMPUL.NEB (DUONEB) INH SCH ×6 (03:10→23:10)
[2022-07-25] MEDS: METHYLPREDNISOLONE SOD SUCC 40 MG/ML VIAL IVP SCH ×4 (04:42→22:00)
[2022-07-25 05:57] LABS: BASOPHILS % (AUTO) 0.2 % (0.0-2.0); CALCIUM 7.5 mg/dL (8.4-11.0); CREATININE 3.7 mg/dL (0.55-1.30); HEMATOCRIT 23.4 % (36-54); HEMOGLOBIN 7.4 g/dL (14.0-18.0); LYMPHOCYTES # (AUTO) 1.5 K/uL (1.0-5.5); LYMPHOCYTES % (AUTO) 5.8 % (20.5-51.5); MEAN CORPUSCULAR HEMOGLOBIN 31 pg (27-31); MEAN CORPUSCULAR HGB CONC 32 % (32-36); MEAN CORPUSCULAR VOLUME 98 fL (79.0-98.0); MONOCYTES # (AUTO) 0.6 K/uL (0.0-1.0); MONOCYTES % (AUTO) 2.5 % (1.7-9.3); RED BLOOD CELL COUNT(AUTO) 2.39 MIL/uL (4.2-6.2); RED CELL DISTRIBUTION WIDTH 18.8 % (9.0-15.0); WHITE BLOOD COUNT (AUTO) 26.3 K/uL (4.8-10.8)
[2022-07-25] MEDS: NAFCILLIN SODIUM 2 GM in NS 100 ML IV SCH ×3 (06:28→18:07)
[2022-07-25] MEDS: PROPOFOL DRIP 100 ML IV PRN (06:29)
[2022-07-25] MEDS: INSULIN REGULAR, HUMAN 100 UNITS/ML, 3 ML VIAL (humuLIN R) SUBCUT PRN ×4 (06:42→21:00)
[2022-07-25 07:29] LABS: PLATELET COUNT (AUTO) 37 K/uL (130-430)
[2022-07-25 07:33] LABS: NEUTROPHILS % (AUTO) 91.5 % (40.0-70.0)
[2022-07-25] MEDS: PANTOPRAZOLE SODIUM 40 MG/VIAL (PROTONIX) IVP SCH ×2 (08:54→21:00)
[2022-07-25] MEDS: INSULIN GLARGINE 100 UNITS/ML, 10 ML VIAL SUBCUT SCH ×2 (08:56→21:00)
--- NOTE | 2022-07-25 09:47 | NUR ---
RT NOTES Dr Gaitan called back, ABG results given. stated we can adjust FIO2 up to 50%
--- NOTE | 2022-07-25 10:14 | NUR ---
RT NOTES FIO2 TO 0.50 per ABG result.
[2022-07-25 11:14] LABS: URINE SODIUM, RANDOM 50 mmol/L (40-220)
[2022-07-25 12:11] LABS: CHLORIDE,URINE RANDOM 78 mmol/L (55-125)
[2022-07-25] MEDS: 0.45% NACL 1,000 ML IV SCH (14:20)
[2022-07-25] MEDS: FLUCONAZOLE 200 mg/ NS 100 ML IV SCH (14:35)
--- NOTE | 2022-07-25 18:38 | NUR ---
Nutrition Consult Nutrition Consult received d/t hyperglycemia on 07/25/22 @ 0131. Pt was seen and assessed by RD 07/24/2022. Please refer to recent Nutrition F/U for details. RD to continue to follow as per nutrition care standards.
[2022-07-25] MEDS: LEVOFLOXACIN 250 MG/D5W 50 ML IV SCH (21:00)
[2022-07-26] VITALS (46 sets, daily range): BP systolic 90–118
[2022-07-26] MEDS: NAFCILLIN SODIUM 2 GM in NS 100 ML IV SCH ×4 (00:47→17:50)
[2022-07-26] MEDS: IPRATROPIUM/ALBUTEROL SULFATE 3 ML AMPUL.NEB (DUONEB) INH SCH ×6 (03:55→22:38)
[2022-07-26] MEDS: METHYLPREDNISOLONE SOD SUCC 40 MG/ML VIAL IVP SCH ×4 (04:00→22:28)
[2022-07-26] MEDS: 0.45% NACL 1,000 ML IV SCH ×2 (05:04→12:16)
[2022-07-26 05:26] LABS: BASOPHILS % (AUTO) 0.1 % (0.0-2.0); EOSINOPHILS # (AUTO) 0.1 K/uL (0.0-0.4); EOSINOPHILS % (AUTO) 0.3 % (0.0-4.0); HEMATOCRIT 24.2 % (36-54); HEMOGLOBIN 7.7 g/dL (14.0-18.0); LYMPHOCYTES % (AUTO) 4.1 % (20.5-51.5); MEAN CORPUSCULAR HEMOGLOBIN 32 pg (27-31); MEAN CORPUSCULAR HGB CONC 32 % (32-36); MEAN CORPUSCULAR VOLUME 99 fL (79.0-98.0); MONOCYTES # (AUTO) 0.6 K/uL (0.0-1.0); MONOCYTES % (AUTO) 2.7 % (1.7-9.3); NEUTROPHILS # (AUTO) 21.7 K/uL (1.8-7.7); RED BLOOD CELL COUNT(AUTO) 2.44 MIL/uL (4.2-6.2); WHITE BLOOD COUNT (AUTO) 23.4 K/uL (4.8-10.8)
[2022-07-26 06:23] LABS: ALBUMIN 1.2 g/dL (3.4-4.8); CALCIUM 7.1 mg/dL (8.4-11.0); CREATININE 4.64 mg/dL (0.55-1.30); PHOSPHORUS 6.6 mg/dL (2.7-4.5); TOTAL BILIRUBIN 5.1 mg/dL (0.0-1.0)
[2022-07-26] MEDS: INSULIN REGULAR, HUMAN 100 UNITS/ML, 3 ML VIAL (humuLIN R) SUBCUT PRN ×4 (06:54→22:44)
--- NOTE | 2022-07-26 07:11 | NUR ---
SPOKE WITH DAVID AT ANSWERING SERVICE REQUESTING ORDERS FROM DR. DALAL REGARDING ABNORMAL LABS.
[2022-07-26 07:30] LABS: NEUTROPHILS % (AUTO) 92.8 % (40.0-70.0); PLATELET COUNT (AUTO) 31 K/uL (130-430)
[2022-07-26] MEDS: PANTOPRAZOLE SODIUM 40 MG/VIAL (PROTONIX) IVP SCH ×2 (08:43→22:29)
[2022-07-26] MEDS: INSULIN GLARGINE 100 UNITS/ML, 10 ML VIAL SUBCUT SCH ×2 (08:47→21:00)
--- NOTE | 2022-07-26 08:53 | NUR ---
SPOKE WITH RACHEL AT ANSWERING EXCHANGE REQUESTING ORDERS FROM DR. HERRERA.
[2022-07-26] MEDS ORDERED: SODIUM ZIRCONIUM CYCLOSILICATE 10 GM POWD.PACK PO ONE (09:00)
--- NOTE | 2022-07-26 09:31 | NUR ---
SPOKE WITH RADU AT [employer] EXCHANGE REGARDING CONSULT FOR DR. GALEANO, ORDERED BY DR. SAUL FOR DIALYSIS CATHETER PLACEMENT.
[2022-07-26] MEDS: FLUCONAZOLE 200 mg/ NS 100 ML IV SCH (15:28)
--- NOTE | 2022-07-26 18:58 | NUR ---
Spoke with Dr Salinas regarding his consult. He is unable to place HD cath with a platelet count of 31. He said to call him back with the plan to correct it.
--- NOTE | 2022-07-26 19:20 | NUR ---
RECEIVED REPORT ON PATIENT FROM AMADEO LOW, ASSUMED CARE, AND STARTED ASSESSMENT.
[2022-07-26] MEDS: LEVOFLOXACIN 250 MG/D5W 50 ML IV SCH (22:29)
[2022-07-26] MEDS: PROPOFOL DRIP 100 ML IV PRN (22:32)
--- NOTE | 2022-07-26 23:23 | NUR ---
PLACED A PHONE CALL TO BRAD MALHOTRA, TO ACQUIRE CONSENT FOR PLATELETS. PHONE DID NOT ANSWER. I LEFT A MESSAGE. WILL CONTINUE TO FOLLOWUP.
[2022-07-27] VITALS (26 sets, daily range): BP systolic 100–139
[2022-07-27] MEDS: IPRATROPIUM/ALBUTEROL SULFATE 3 ML AMPUL.NEB (DUONEB) INH SCH ×6 (02:49→23:16)
[2022-07-27] MEDS: METHYLPREDNISOLONE SOD SUCC 40 MG/ML VIAL IVP SCH ×4 (04:00→22:28)
[2022-07-27 05:33] LABS: BASOPHILS % (AUTO) 0.3 % (0.0-2.0); HEMATOCRIT 23.2 % (36-54); HEMOGLOBIN 7.5 g/dL (14.0-18.0); LYMPHOCYTES # (AUTO) 0.6 K/uL (1.0-5.5); LYMPHOCYTES % (AUTO) 3.7 % (20.5-51.5); MEAN CORPUSCULAR HEMOGLOBIN 32 pg (27-31); MEAN CORPUSCULAR HGB CONC 32 % (32-36); MEAN CORPUSCULAR VOLUME 98 fL (79.0-98.0); MONOCYTES # (AUTO) 0.5 K/uL (0.0-1.0); MONOCYTES % (AUTO) 2.9 % (1.7-9.3); NEUTROPHILS # (AUTO) 16.1 K/uL (1.8-7.7); NEUTROPHILS % (AUTO) 93.1 % (40.0-70.0); RED BLOOD CELL COUNT(AUTO) 2.36 MIL/uL (4.2-6.2); RED CELL DISTRIBUTION WIDTH 18.9 % (9.0-15.0); WHITE BLOOD COUNT (AUTO) 17.3 K/uL (4.8-10.8)
[2022-07-27 05:40] LABS: PLATELET COUNT (AUTO) 28 K/uL (130-430)
[2022-07-27 05:50] LABS: ALBUMIN 1.2 g/dL (3.4-4.8); CREATININE 5.28 mg/dL (0.55-1.30); TOTAL BILIRUBIN 4.8 mg/dL (0.0-1.0)
[2022-07-27] MEDS: 0.45% NACL 1,000 ML IV SCH ×2 (06:04→17:28)
[2022-07-27 06:12] LABS: CALCIUM 6.4 mg/dL (8.4-11.0)
[2022-07-27] MEDS: INSULIN REGULAR, HUMAN 100 UNITS/ML, 3 ML VIAL (humuLIN R) SUBCUT PRN ×3 (06:47→19:02)
--- NOTE | 2022-07-27 07:22 | NUR ---
NUMEROUS ATTEMPT WERE MADE TO THE LAB IN AN ATTEMPT TO PROCURE THE PLATELETS WITH NO SUCCESS. THE CHARGE NURSE IN ICU CALLED THE LAB THIS MORNING AND WE WERE STILL UNABLE TO OBTAIN THE PLATELETS. ENDORSED TO THE DAY SHIFT AMADEO CHATTERJEE WHEN I GAVE HIM REPORT. CARE WAS TURNED OVER TO HIM.
--- NOTE | 2022-07-27 08:00 | NUR ---
SEN MONTEIRO RN IS IN CHARGE OF THIS PT-PT IS SEDATED INTUBATED/PT AROUSABLE BUT NOT FOLLOWING COMMANDS/MW
[2022-07-27] MEDS: INSULIN GLARGINE 100 UNITS/ML, 10 ML VIAL SUBCUT SCH ×2 (09:50→22:29)
[2022-07-27] MEDS: PANTOPRAZOLE SODIUM 40 MG/VIAL (PROTONIX) IVP SCH ×2 (09:51→22:25)
[2022-07-27] MEDS: PROPOFOL DRIP 100 ML IV PRN ×2 (09:55→20:48)
--- NOTE | 2022-07-27 10:50 | NUR ---
PLATELETS INFUSED, PT LABS ORDERED POST TRANSFUSION/PT TOLERATED WELL, STILL SEDATED ON 45% FIO2//MW
[2022-07-27] MEDS ORDERED: SODIUM POLYSTYRENE SULFONATE 15 GM/60 ML UDBTL RC ONE (11:30)
[2022-07-27] MEDS ORDERED: METOCLOPRAMIDE HCL 10 MG/2 ML VIAL IVP ONE (11:45)
[2022-07-27] MEDS ORDERED: CALCIUM GLUC 1 GM/100ML-NACL 100 ML IV ONE (12:00)
[2022-07-27] MEDS ORDERED: CALCIUM GLUCONATE 1 GM/10 ML VIAL ONE (12:13)
[2022-07-27] MEDS: ALBUMIN HUMAN 25% 50 ML IV SCH ×3 (12:15→21:58)
--- NOTE | 2022-07-27 13:00 | NUR ---
PLATELET AND H/H REPORTED TO DR HERRERA-STATES DR VILLAVICENCIO WILL WANT PLATELETS ORDERED AND WILL PL[facility]//MW
[2022-07-27 13:42] LABS: BASOPHILS % (AUTO) 0.3 % (0.0-2.0); EOSINOPHILS % (AUTO) 0.1 % (0.0-4.0); LYMPHOCYTES # (AUTO) 0.6 K/uL (1.0-5.5); MEAN CORPUSCULAR HEMOGLOBIN 32 pg (27-31); MEAN CORPUSCULAR HGB CONC 33 % (32-36); MEAN CORPUSCULAR VOLUME 98 fL (79.0-98.0); MONOCYTES # (AUTO) 0.5 K/uL (0.0-1.0); MONOCYTES % (AUTO) 2.9 % (1.7-9.3); NEUTROPHILS # (AUTO) 14.5 K/uL (1.8-7.7); NEUTROPHILS % (AUTO) 92.7 % (40.0-70.0); RED BLOOD CELL COUNT(AUTO) 2.12 MIL/uL (4.2-6.2); RED CELL DISTRIBUTION WIDTH 19.6 % (9.0-15.0); WHITE BLOOD COUNT (AUTO) 15.7 K/uL (4.8-10.8)
[2022-07-27 13:58] LABS: ALBUMIN 1.4 g/dL (3.4-4.8); CREATININE 5.63 mg/dL (0.55-1.30); HEMOGLOBIN 6.8 g/dL (14.0-18.0); TOTAL BILIRUBIN 4.2 mg/dL (0.0-1.0)
[2022-07-27 13:59] LABS: HEMATOCRIT 20.8 % (36-54); PLATELET COUNT (AUTO) 39 K/uL (130-430)
[2022-07-27 14:02] LABS: CALCIUM 6.5 mg/dL (8.4-11.0)
[2022-07-27] MEDS: FLUCONAZOLE 200 mg/ NS 100 ML IV SCH (15:13)
[2022-07-27] MEDS ORDERED: FUROSEMIDE 40 MG/4 ML VIAL IVP ONE (15:15)
--- NOTE | 2022-07-27 18:00 | NUR ---
PLATELETS ORDERED, PER LAB WILL TAKE A WHILE TO GET/BUT SHOULD BE HERE BY TOMORROW/PER DR VILLAVICENCIO, WANTS PLATELETES AT BEDSIDE TOMORROW AM AT 10AM AND HE WILL PLACE CASA CATH PLATELETS TRANSFUSE//AWAIT PLATELETS, WRECKING CRANE ENGINE OPERATOR AWARE//MW
[2022-07-27] MEDS: LEVOFLOXACIN 250 MG/D5W 50 ML IV SCH (22:12)
[2022-07-27] MEDS: METOCLOPRAMIDE HCL 10 MG/2 ML VIAL IVP SCH (22:27)
[2022-07-28] VITALS (32 sets, daily range): BP systolic 92–111
[2022-07-28] MEDS: IPRATROPIUM/ALBUTEROL SULFATE 3 ML AMPUL.NEB (DUONEB) INH SCH ×6 (03:00→22:35)
[2022-07-28] MEDS: METHYLPREDNISOLONE SOD SUCC 40 MG/ML VIAL IVP SCH ×3 (05:45→23:26)
[2022-07-28] MEDS: 0.45% NACL 1,000 ML IV SCH (06:17)
[2022-07-28 07:42] LABS: CREATININE 5.91 mg/dL (0.55-1.30)
[2022-07-28 07:50] LABS: CALCIUM 6.1 mg/dL (8.4-11.0)
[2022-07-28 07:58] LABS: BASOPHILS % (AUTO) 0.1 % (0.0-2.0); LYMPHOCYTES # (AUTO) 0.5 K/uL (1.0-5.5); LYMPHOCYTES % (AUTO) 4.2 % (20.5-51.5); MEAN CORPUSCULAR HEMOGLOBIN 32 pg (27-31); MEAN CORPUSCULAR HGB CONC 33 % (32-36); MEAN CORPUSCULAR VOLUME 97 fL (79.0-98.0); MONOCYTES # (AUTO) 0.4 K/uL (0.0-1.0); MONOCYTES % (AUTO) 3.3 % (1.7-9.3); NEUTROPHILS # (AUTO) 10.6 K/uL (1.8-7.7); NEUTROPHILS % (AUTO) 92.4 % (40.0-70.0); RED BLOOD CELL COUNT(AUTO) 2.04 MIL/uL (4.2-6.2); RED CELL DISTRIBUTION WIDTH 19.2 % (9.0-15.0); WHITE BLOOD COUNT (AUTO) 11.4 K/uL (4.8-10.8)
[2022-07-28 09:18] LABS: INR 2.1 (0.80-1.20); PROTHROMBIN TIME 21.1 SECS (9.5-12.5)
[2022-07-28] MEDS: PANTOPRAZOLE SODIUM 40 MG/VIAL (PROTONIX) IVP SCH ×2 (09:45→23:20)
[2022-07-28] MEDS: INSULIN GLARGINE 100 UNITS/ML, 10 ML VIAL SUBCUT SCH ×2 (09:55→23:25)
[2022-07-28] MEDS: METOCLOPRAMIDE HCL 10 MG/2 ML VIAL IVP SCH ×2 (09:55→23:23)
--- NOTE | 2022-07-28 11:30 | NUR ---
Nutrition F/U RD reviewed pts current EMR including diet hx, physician notes, nursing notes, pertinent labs/meds/procedures, care trends and care activity. Subjective Information RD attended ICU rounds and s/w primary RN regarding pt. He reports that pt was having high residuals of about 300mL, so TF was stopped for 1 day. Now it is running @ 35 mL/hr. He reports that pt seems to be tolerated TF better today and that he had large BM yesterday. RD suggested Nepro, d/t worsening kidney fx. RN reports that HD has not happened d/t clotting factors being elevated and they are having trouble getting consent for this procedure. Per EMR review: Kye 11; Labs: A1c 9.36 H, WBC 11.4 H (improving), Na 142 WNL, K+6.1*H, Cl 108 H, BUN 161* H, Cre 5.91 H (BUN/Cre worsening), BG 230H, Ca6.1* H; pt is currently on propofol @ 38258wR/hr (provides 305 kcal) . Pt is not currently meeting nutritional needs. Current Diet Order/Nutrition Support Glucerna 1.2 @ 50mL/hr, FWF 150mL q4h via OGT x 4 days % PO intake NPO Last BM 07/28 x 1 Estimated Energy Expenditure (kcals/day) 1961 kcal ([facility]U 2002 vent/ICU. MSJ 1595, Tmax37.17, Vetot 14 ) Estimated Protein Required (g/day) 46-73 (0.6-1 g/kg CBW d/t critical illness, renal labs) Estimated Fluid Required (l/day) Refer to MD (renal labs) Problem/Etiology/Signs/Symptoms * Inadequate oral intake R/T decreased appetite AEB poor PO intake records (ongoing). *Altered nutrition related labs RT kidney and liver disease AEB elevated BUN/Cre and elevated t.Bili and AST (ongoing) Expected Outcomes/Goals * EN tolerated at goal rate, EN provides >95% estimated nutritional needs, improvements in skin integrity, nutrition-related labs trending WNL, weight maintenance, BM q 1-3 days Dietitian Recommendations * Ordered Nepro @ 35mL/hr, FWF 150mL q4h via OGT Provides:1512 kcal (1817 kcal w/ propofol), 68g PRO, 1685mL free water (inc FWF) Meets (w/ propofol): 93% of est kcal, 93% of lower PRO * If pt extubated, please contact RD to re-assess nutrient needs Follow up *High risk: f/u w/ pt in 2-3days GS, MPH, RD
--- NOTE | 2022-07-28 11:33 | NUR ---
Dietitian Recommendations * Ordered Nepro @ 35mL/hr, FWF 150mL q4h via OGT Provides:1512 kcal (1817 kcal w/ propofol), 68g PRO, 1511mL free water (inc FWF) Meets (w/ propofol): 93% of est kcal, 93% of lower PRO * If pt extubated, please contact RD to re-assess nutrient needs GS, MPH, RD Please refer to Nutrition F/U for further details. Thanks!
[2022-07-28] MEDS: INSULIN REGULAR, HUMAN 100 UNITS/ML, 3 ML VIAL (humuLIN R) SUBCUT PRN ×2 (11:55→18:21)
[2022-07-28] MEDS: NAFCILLIN SODIUM 2 GM in NS 100 ML IV SCH ×2 (12:20→18:24)
--- NOTE | 2022-07-28 12:30 | NUR ---
HIGH ALERT NOTE: DR. RHODES ROUNDING AT BEDSIDE. INFORMED OF LABS 60 polystyrene sulfonate ORDERED. 1 AMP BI CARD IVP. D5W WITH 3 AMPS BICARD AT 40 ML/HR. DISCONTINUE CURRENT FLUID.
[2022-07-28] MEDS ORDERED: SODIUM POLYSTYRENE SULFONATE 15 GM/60 ML UDBTL PO ONE (12:45)
[2022-07-28] MEDS ORDERED: SODIUM BICARBONATE 8.4% JECT 50 MEQ/50 ML SYRINGE IVP ONE (12:45)
[2022-07-28 13:04] LABS: HEMATOCRIT 19.8 % (36-54); HEMOGLOBIN 6.5 g/dL (14.0-18.0)
[2022-07-28 13:05] LABS: PLATELET COUNT (AUTO) 33 K/uL (130-430)
[2022-07-28] MEDS ORDERED: SODIUM BICARBONATE 8.4% JECT 150 MEQ in D5W 1,000 ML IVP SCH (13:30)
[2022-07-28] MEDS: FLUCONAZOLE 200 mg/ NS 100 ML IV SCH (15:33)
[2022-07-28] MEDS ORDERED: CALCIUM GLUCONATE 1 GM in NS 100 ML IV ONE (16:00)
[2022-07-28] MEDS: PROPOFOL DRIP 100 ML IV PRN (18:56)
--- NOTE | 2022-07-28 20:20 | NUR ---
No return call from Dr Salinas. attempted to report that last unit of FFP has been infused. Waiting for Dr Salinas for instructions if placement of dialysis catheter will have place tonight. will contact exchange again.
--- NOTE | 2022-07-28 21:30 | NUR ---
Contacted blood bank to find out expiration date on unit of platelets intended to infuse during procedure. As per blood bank unit will still be ok for transfusion until 07/29/22 at 2355.
[2022-07-28] MEDS: LEVOFLOXACIN 250 MG/D5W 50 ML IV SCH (23:20)
[2022-07-28] MEDS: LINEZOLID 300 ML IV SCH (23:20)
[2022-07-29] VITALS (33 sets, daily range): BP systolic 90–137
[2022-07-29] MEDS: IPRATROPIUM/ALBUTEROL SULFATE 3 ML AMPUL.NEB (DUONEB) INH SCH ×6 (04:50→23:00)
[2022-07-29 05:15] LABS: BASOPHILS % (AUTO) 0.1 % (0.0-2.0); HEMATOCRIT 22.7 % (36-54); HEMOGLOBIN 7.6 g/dL (14.0-18.0); LYMPHOCYTES # (AUTO) 0.3 K/uL (1.0-5.5); LYMPHOCYTES % (AUTO) 3.3 % (20.5-51.5); MEAN CORPUSCULAR HEMOGLOBIN 31 pg (27-31); MEAN CORPUSCULAR HGB CONC 33 % (32-36); MEAN CORPUSCULAR VOLUME 94 fL (79.0-98.0); MONOCYTES # (AUTO) 0.3 K/uL (0.0-1.0); MONOCYTES % (AUTO) 3.3 % (1.7-9.3); NEUTROPHILS # (AUTO) 8.4 K/uL (1.8-7.7); NEUTROPHILS % (AUTO) 93.3 % (40.0-70.0); RED BLOOD CELL COUNT(AUTO) 2.42 MIL/uL (4.2-6.2); RED CELL DISTRIBUTION WIDTH 20.6 % (9.0-15.0)
[2022-07-29] MEDS: NAFCILLIN SODIUM 2 GM in NS 100 ML IV SCH ×4 (05:32→20:55)
[2022-07-29 08:21] LABS: PLATELET COUNT (AUTO) 35 K/uL (130-430)
[2022-07-29] MEDS: INSULIN GLARGINE 100 UNITS/ML, 10 ML VIAL SUBCUT SCH ×2 (08:48→21:00)
[2022-07-29] MEDS: LINEZOLID 300 ML IV SCH (08:49)
[2022-07-29] MEDS: METOCLOPRAMIDE HCL 10 MG/2 ML VIAL IVP SCH ×2 (08:50→21:15)
[2022-07-29] MEDS: PANTOPRAZOLE SODIUM 40 MG/VIAL (PROTONIX) IVP SCH ×2 (08:50→20:56)
[2022-07-29] MEDS: METHYLPREDNISOLONE SOD SUCC 40 MG/ML VIAL IVP SCH ×2 (08:51→21:16)
[2022-07-29 09:02] LABS: CREATININE 6.21 mg/dL (0.55-1.30)
[2022-07-29 09:04] LABS: CALCIUM 5.8 mg/dL (8.4-11.0)
[2022-07-29] MEDS: SODIUM BICARBONATE 8.4% JECT 150 MEQ in D5W 1,000 ML IV SCH (09:36)
[2022-07-29 10:35] LABS: PROTHROMBIN TIME 20.1 SECS (9.5-12.5)
[2022-07-29] MEDS ORDERED: IPRATROPIUM/ALBUTEROL SULFATE 3 ML AMPUL.NEB (DUONEB) ONE (11:29)
[2022-07-29] MEDS: INSULIN REGULAR, HUMAN 100 UNITS/ML, 3 ML VIAL (humuLIN R) SUBCUT PRN ×2 (12:29→19:53)
--- NOTE | 2022-07-29 13:25 | NUR ---
ADVANCED ETT 2cm FROM 25 TO 27cm LIP LINE.
[2022-07-29] MEDS: MICAFUNGIN SODIUM IV SCH (13:34)
[2022-07-29] MEDS: NS IV SCH (13:34)
[2022-07-29] MEDS ORDERED: PHYTONADIONE 10 MG/ML AMP IM ONE (19:00)
[2022-07-29] MEDS ORDERED: FUROSEMIDE 100 MG in D5W 90 ML IV SCH (19:00)
[2022-07-29] MEDS ORDERED: CALCIUM CHLORIDE 1 GM in NS 100 ML IV ONE (20:00)
--- NOTE | 2022-07-29 23:00 | NUR ---
dr ramirez placed right IJ patsy cath, xray confirmed placement, hd aware and in house to begin dialysis.
[2022-07-30] VITALS (33 sets, daily range): BP systolic 96–144
--- NOTE | 2022-07-30 01:00 | NUR ---
journeyman level acoustic analyst endorsed 1L of fluid removed during hd
[2022-07-30] MEDS: IPRATROPIUM/ALBUTEROL SULFATE 3 ML AMPUL.NEB (DUONEB) INH SCH ×6 (03:00→23:06)
--- NOTE | 2022-07-30 03:58 | NUR ---
Patient bathed and remains incontinent of stool. Flexiseal in place, but leaks around site. When sacral dressing changed, patien noted to have severed sloughing of skin layer (s). Barrier cream applied where applicable and new foam dressings placed. Will endorse to AM RN to pass along to health therapist and MDs.
[2022-07-30 05:26] LABS: ALBUMIN 1.7 g/dL (3.4-4.8); CREATININE 4.12 mg/dL (0.55-1.30); PHOSPHORUS 5.4 mg/dL (2.7-4.5); TOTAL BILIRUBIN 3.4 mg/dL (0.0-1.0)
[2022-07-30 05:56] LABS: CALCIUM 6.1 mg/dL (8.4-11.0)
[2022-07-30] MEDS: NAFCILLIN SODIUM 2 GM in NS 100 ML IV SCH ×4 (06:30→23:59)
[2022-07-30 07:38] LABS: BASOPHILS % (AUTO) 0.3 % (0.0-2.0); HEMATOCRIT 23.6 % (36-54); LYMPHOCYTES # (AUTO) 0.3 K/uL (1.0-5.5); LYMPHOCYTES % (AUTO) 2.2 % (20.5-51.5); MEAN CORPUSCULAR HEMOGLOBIN 31 pg (27-31); MEAN CORPUSCULAR HGB CONC 34 % (32-36); MEAN CORPUSCULAR VOLUME 90 fL (79.0-98.0); MONOCYTES # (AUTO) 0.5 K/uL (0.0-1.0); MONOCYTES % (AUTO) 4.1 % (1.7-9.3); NEUTROPHILS # (AUTO) 10.6 K/uL (1.8-7.7); NEUTROPHILS % (AUTO) 93.4 % (40.0-70.0); RED BLOOD CELL COUNT(AUTO) 2.61 MIL/uL (4.2-6.2); RED CELL DISTRIBUTION WIDTH 19.6 % (9.0-15.0); WHITE BLOOD COUNT (AUTO) 11.4 K/uL (4.8-10.8)
[2022-07-30 08:03] LABS: PLATELET COUNT (AUTO) 47 K/uL (130-430)
[2022-07-30 08:22] LABS: INR 1.6 (0.80-1.20); PROTHROMBIN TIME 16.4 SECS (9.5-12.5)
[2022-07-30] MEDS: PANTOPRAZOLE SODIUM 40 MG/VIAL (PROTONIX) IVP SCH ×2 (08:47→20:25)
[2022-07-30] MEDS: METOCLOPRAMIDE HCL 10 MG/2 ML VIAL IVP SCH ×2 (08:47→20:25)
[2022-07-30] MEDS: SODIUM BICARBONATE 8.4% JECT 150 MEQ in D5W 1,000 ML IV SCH (08:48)
[2022-07-30] MEDS: METHYLPREDNISOLONE SOD SUCC 40 MG/ML VIAL IVP SCH ×2 (08:51→21:29)
[2022-07-30] MEDS: INSULIN GLARGINE 100 UNITS/ML, 10 ML VIAL SUBCUT SCH ×2 (08:52→20:25)
[2022-07-30] MEDS: MICAFUNGIN SODIUM IV SCH (11:26)
[2022-07-30] MEDS: NS IV SCH (11:26)
[2022-07-30] MEDS: INSULIN REGULAR, HUMAN 100 UNITS/ML, 3 ML VIAL (humuLIN R) SUBCUT PRN (11:28)
[2022-07-30] MEDS ORDERED: ALBUMIN HUMAN 25% 200 ML IV ONE (14:00)
[2022-07-30] MEDS ORDERED: CALCIUM GLUCONATE 1 GM in NS 100 ML IV ONE (16:00)
[2022-07-31] VITALS (33 sets, daily range): BP systolic 103–133
[2022-07-31] MEDS: IPRATROPIUM/ALBUTEROL SULFATE 3 ML AMPUL.NEB (DUONEB) INH SCH ×6 (02:07→23:05)
[2022-07-31] MEDS: NAFCILLIN SODIUM 2 GM in NS 100 ML IV SCH ×3 (06:37→17:27)
[2022-07-31 07:22] LABS: BASOPHILS % (AUTO) 0.2 % (0.0-2.0); HEMATOCRIT 25.1 % (36-54); HEMOGLOBIN 8.6 g/dL (14.0-18.0); LYMPHOCYTES # (AUTO) 0.5 K/uL (1.0-5.5); LYMPHOCYTES % (AUTO) 4.7 % (20.5-51.5); MEAN CORPUSCULAR HEMOGLOBIN 31 pg (27-31); MEAN CORPUSCULAR HGB CONC 34 % (32-36); MEAN CORPUSCULAR VOLUME 91 fL (79.0-98.0); MONOCYTES # (AUTO) 0.5 K/uL (0.0-1.0); MONOCYTES % (AUTO) 4.9 % (1.7-9.3); NEUTROPHILS # (AUTO) 9.4 K/uL (1.8-7.7); NEUTROPHILS % (AUTO) 90.2 % (40.0-70.0); RED BLOOD CELL COUNT(AUTO) 2.76 MIL/uL (4.2-6.2); RED CELL DISTRIBUTION WIDTH 19.2 % (9.0-15.0); WHITE BLOOD COUNT (AUTO) 10.5 K/uL (4.8-10.8)
[2022-07-31 07:26] LABS: PLATELET COUNT (AUTO) 36 K/uL (130-430)
[2022-07-31 08:07] LABS: ALBUMIN 1.8 g/dL (3.4-4.8); CREATININE 3.38 mg/dL (0.55-1.30); PHOSPHORUS 4.8 mg/dL (2.7-4.5); TOTAL BILIRUBIN 4.1 mg/dL (0.0-1.0)
[2022-07-31 08:30] LABS: CALCIUM 6.9 mg/dL (8.4-11.0)
[2022-07-31] MEDS: PANTOPRAZOLE SODIUM 40 MG/VIAL (PROTONIX) IVP SCH ×2 (09:17→21:06)
[2022-07-31] MEDS: METOCLOPRAMIDE HCL 10 MG/2 ML VIAL IVP SCH ×2 (09:18→21:07)
[2022-07-31] MEDS: METHYLPREDNISOLONE SOD SUCC 40 MG/ML VIAL IVP SCH ×2 (09:18→21:23)
[2022-07-31] MEDS: SODIUM BICARBONATE 8.4% JECT 150 MEQ in D5W 1,000 ML IV SCH (10:17)
--- NOTE | 2022-07-31 10:26 | NUR ---
Nutrition F/U RD reviewed pts current EMR including diet hx, physician notes, nursing notes, pertinent labs/meds/procedures, care trends and care activity. Subjective Information RD attended ICU rounds and s/w primary RN regarding pt. RN reports that pt is receiving HD daily and will be having it today; his renal labs are improving. RD witnessed pt propofol is low @ 1.86mL/hr (provides 49 kcal). Case management brought up the possibility for a trach placement. RN reports that pt has a sacral wound and skin tears on arms. Per EMR review: Kye 11; Labs: A1c 9.36 H, WBC 10.5 WNL (improving), Na 141 WNL, K+3.1 L, BUN 67 H, Cre 3.38 H (BUN/Cre improving), BG 148H, Ca 6.9* H; abd soft, non-distended w/ active bowel sounds. Pt is currently meeting nutritional needs. Current Diet Order/Nutrition Support Nepro @ 35mL/hr, FWF 150mL q6h via OGT x 3 days % PO intake NPO Last BM 07/30 x 1 NEW Estimated Energy Expenditure (kcals/day) 1787 kcal ([facility] 2003 vent/ICU. MSJ 1595, Tmax37, Vetot 9.3 ) Estimated Protein Required (g/day) 46-73 (0.6-1 g/kg CBW d/t critical illness, renal labs) Estimated Fluid Required (l/day) Refer to MD (renal labs) Problem/Etiology/Signs/Symptoms * Inadequate oral intake R/T decreased appetite AEB poor PO intake records (resolved). *Altered nutrition related labs RT kidney and liver disease AEB elevated BUN/Cre and elevated t.Bili and AST (ongoing) Expected Outcomes/Goals * EN tolerated at goal rate, EN provides >95% estimated nutritional needs, improvements in skin integrity, nutrition-related labs trending WNL, weight maintenance, BM q 1-3 days Dietitian Recommendations * Nepro @ 35mL/hr, FWF 150mL q4h, Dariel BID via OGT Provides (w/ Dariel):1692 kcal, 73g PRO, 1685mL free water (inc FWF) Meets: 95% of est kcal, 100% of upper PRO * Ordered Dariel BID * If pt extubated, please contact RD to re-assess nutrient needs Follow up *High risk: f/u w/ pt in 2-3days GS, MPH, RD
[2022-07-31] MEDS: INSULIN GLARGINE 100 UNITS/ML, 10 ML VIAL SUBCUT SCH ×2 (10:29→21:22)
--- NOTE | 2022-07-31 10:29 | NUR ---
Dietitian Recommendations * Nepro @ 35mL/hr, FWF 150mL q4h, Dariel BID via OGT Provides (w/ Dariel):1692 kcal, 73g PRO, 1685mL free water (inc FWF) Meets: 95% of est kcal, 100% of upper PRO * Ordered Dariel BID * If pt extubated, please contact RD to re-assess nutrient needs GS, MPH, RD Please refer to Nutrition F/U for further details. Thanks!
[2022-07-31] MEDS: MICAFUNGIN SODIUM IV SCH (11:30)
[2022-07-31] MEDS: NS IV SCH (11:30)
[2022-07-31] MEDS: CHOLECALCIFEROL (VITAMIN D3) 2,000 UNIT TABLET NG ONE ×2 (14:27→14:30)
--- NOTE | 2022-07-31 15:17 | NUR ---
1445- Dr. Kandy lam. Aware pH on ABG 7.5. Aware no SBT as of yet. New orders rec'd.
--- NOTE | 2022-07-31 15:22 | NUR ---
RT NOTES Dr Gaitan changed vent settings to AC 14. Will do cpap trial per order after HHN tx.
--- NOTE | 2022-07-31 15:40 | NUR ---
RT NOTES Per order, vent to cpap 5 ps 10. Pt appears to understand information provided regarding cpap trial. No adverse reactions noted. @ 1550 no signs of distress noted, exh. CO2 34-35. Will monitor pt. Rn to notify Rt for any change in condition.
--- NOTE | 2022-07-31 16:29 | NUR ---
Dr. Carter made aware potassium 3.1 and Bicarbonate infusion at 20 ml/hr and ABG pH 7.542 and HCO3 29.1. Ok for HD tomorrow morning instead of tonight. New orders rec'd.
[2022-07-31] MEDS ORDERED: POTASSIUM CHLORIDE 20 MEQ/PKT PACKET PO ONE (16:30)
--- NOTE | 2022-07-31 16:59 | NUR ---
Dr. Burdick rounded. To continue POC BS checks q4h. Aware patient on CPAP on ventilator. Aware HD to be done tomorrow morning instead of today, minimal urine output. No new orders rec'd.
--- NOTE | 2022-07-31 17:12 | NUR ---
RT NOTES end cpap due to low R.R, vent back to AC. Rn made aware.
[2022-07-31] MEDS: INSULIN REGULAR, HUMAN 100 UNITS/ML, 3 ML VIAL (humuLIN R) SUBCUT PRN (17:46)
--- NOTE | 2022-07-31 19:30 | NUR ---
RECEIVED SEDATED WITH PROPOFOL AT 15 MCG/KG/MIN, PATIENT IS AROUSABLE, RASS-2. BILATERAL LUNG SOUNDS ARE DIMINISHED AT THE BASES. ORALLY INTUBATED. AC 14, FIO2 AT 35%, TV 450 AND PEEP 5. SAT 97%. WOOD COATER IS SHOWING NSR, NS TKO ON THE RIGHT UPPER PICC LINE. PALPABLE PULSES. BILATERAL ARMS ARE EDEMATOUS, 2+. ABDOMEN IS SOFT AND NON-DISTENDED. OG TUBE FEEDING OF NEPHRO AT 35 ML/HR, RESIDUAL 5ML. HOB ELEVATED. ON ASPIRATION PRECAUTION. RIGHT IJ CASA PRESENT, DRESSING DRY AND INTACT. THOMAS INTACT AND PATENT, DRAINING SMALL AMOUNT OF HAYLEY URINE. FLEXISEAL DRAINING BROWNISH STOOLS. AFEBRILE. BOTH ARMS WITH SKIN TEARS AND BLISTERS, SCROTAL SKIN TEAR AND OPEN WOUND ON THE SACRUM.
--- NOTE | 2022-07-31 20:00 | NUR ---
DECREASED FIO2 TO 30% BY RT, WILL CONTINUE TO MONITOR.
[2022-07-31] MEDS: PROPOFOL DRIP 100 ML IV PRN (22:38)
[2022-08-01] VITALS (36 sets, daily range): BP systolic 100–134
[2022-08-01] MEDS: NAFCILLIN SODIUM 2 GM in NS 100 ML IV SCH ×4 (01:55→17:10)
[2022-08-01] MEDS: INSULIN REGULAR, HUMAN 100 UNITS/ML, 3 ML VIAL (humuLIN R) SUBCUT PRN ×3 (01:59→10:55)
[2022-08-01] MEDS: IPRATROPIUM/ALBUTEROL SULFATE 3 ML AMPUL.NEB (DUONEB) INH SCH ×4 (03:00→23:09)
[2022-08-01 06:12] LABS: BASOPHILS % (AUTO) 0.1 % (0.0-2.0); HEMATOCRIT 27.9 % (36-54); HEMOGLOBIN 9.4 g/dL (14.0-18.0); LYMPHOCYTES # (AUTO) 0.4 K/uL (1.0-5.5); LYMPHOCYTES % (AUTO) 2.6 % (20.5-51.5); MEAN CORPUSCULAR HEMOGLOBIN 31 pg (27-31); MEAN CORPUSCULAR HGB CONC 34 % (32-36); MEAN CORPUSCULAR VOLUME 92 fL (79.0-98.0); MONOCYTES # (AUTO) 0.6 K/uL (0.0-1.0); MONOCYTES % (AUTO) 3.7 % (1.7-9.3); NEUTROPHILS # (AUTO) 15.5 K/uL (1.8-7.7); NEUTROPHILS % (AUTO) 93.6 % (40.0-70.0); PLATELET COUNT (AUTO) 52 K/uL (130-430); RED BLOOD CELL COUNT(AUTO) 3.03 MIL/uL (4.2-6.2); RED CELL DISTRIBUTION WIDTH 19.1 % (9.0-15.0); WHITE BLOOD COUNT (AUTO) 16.5 K/uL (4.8-10.8)
[2022-08-01 06:33] LABS: ALBUMIN 1.7 g/dL (3.4-4.8); CALCIUM 7.3 mg/dL (8.4-11.0); CREATININE 4.1 mg/dL (0.55-1.30); TOTAL BILIRUBIN 5.5 mg/dL (0.0-1.0)
--- NOTE | 2022-08-01 08:00 | NUR ---
RECEIVED PATIENT IN BED, AWAKE ALERT X1 ETT TO VENT, WILL START CPAP TRIAL BY RT, STOP PROPOFOL DRIP FOR CPAP TRIAL. PATIENT IS MORE AWAKE NOW. OG FEEDING ON NEPHRO AT 35 ML/HR, NO RESIDUE AT THIS TIME. FLUSHED WITH WATER. RIChristo CASA CATH FOR HD ACCESS. THOMAS CATH IN PLACE DRAINING TO GRAVITY. SINUS RHYTHM ON THE MONITOR.BOTH ARM EDEMA. DTI AT BUTTOM WITH MEPILEX ON . WILL CONTINUE TO MONITOR.
[2022-08-01] MEDS: PANTOPRAZOLE SODIUM 40 MG/VIAL (PROTONIX) IVP SCH ×2 (08:37→22:25)
[2022-08-01] MEDS: METOCLOPRAMIDE HCL 10 MG/2 ML VIAL IVP SCH ×2 (08:37→22:26)
[2022-08-01] MEDS: METHYLPREDNISOLONE SOD SUCC 40 MG/ML VIAL IVP SCH ×2 (08:37→22:28)
--- NOTE | 2022-08-01 08:37 | NUR ---
Rt notes 0815 pt placed on cpap of 5 ps of 10. Vt 634 RR 7.4 BPM 77 Spo2 96% will cont to monitor, rn is aware Addendum: 08/01/22 at 0840 by Irene Ozuna RT Amended: Links added.
[2022-08-01] MEDS: CHOLECALCIFEROL (VITAMIN D3) 2,000 UNIT TABLET NG SCH (08:38)
[2022-08-01 09:59] LABS: INR 1.8 (0.80-1.20); PROTHROMBIN TIME 17.7 SECS (9.5-12.5)
[2022-08-01] MEDS: NS IV SCH (10:47)
[2022-08-01] MEDS: MICAFUNGIN SODIUM IV SCH (10:47)
[2022-08-01] MEDS: INSULIN GLARGINE 100 UNITS/ML, 10 ML VIAL SUBCUT SCH ×2 (10:51→22:27)
--- NOTE | 2022-08-01 11:00 | NUR ---
LEFT MESSAGE TO HD NURSE FOR HD TODAY.
[2022-08-01 11:06] LABS: HEPATITIS A AB, IgM Negative (Negative); HEPATITIS B CORE AB, IgM Negative (Negative); HEPATITIS B SURFACE AG Negative (Negative)
--- NOTE | 2022-08-01 11:23 | NUR ---
RT NOTES 0815 PLACED PT ON CPAP 5 PS 10 TRIAL. 1035 PLACED PT BACK TO AC, PT TOLERATED BREATHING TRIAL. RN AWARE, WILL CON TO MONITOR. Addendum: 08/01/22 at 1126 by Irene Ozuna RT Amended: Links added.
--- NOTE | 2022-08-01 13:55 | NUR ---
RECEIVED A CALL FROM DR RHODES, UPDATED PATIENT'S CONDITION, WILL PUT CPAP TRIAL AGAIN PER PULMO. TURN OFF SEDATION. PATIENT IS ALERT AND AWAKE NOW.
--- NOTE | 2022-08-01 14:07 | NUR ---
RT NOTES 1350 PT TOLERATING CPAP TRIAL. RR6,HR 62,98%. ABG [address] RHODES. Addendum: 08/01/22 at 1413 by Irene Ozuna RT Amended: Links added.
--- NOTE | 2022-08-01 14:47 | NUR ---
SEEN BY MEAGAN AT BEDSIDE, PATIENT STILL ON CPAP TRIAL TOLERATE WELL, WILL EXTUBATE AFTER ABG TEST.
--- NOTE | 2022-08-01 16:00 | NUR ---
PATIENT HAS EPISODE OF APNEA SHOWS ON THE VENT , RR 6-10 , ABG DONE , PAGED DR RHODES FOR THE RESULT. PATIENT IS ALERT, AWAKE NOW.
--- NOTE | 2022-08-01 18:21 | NUR ---
DR RHODES SPOKE TO RT, WILL TRY TO EXTUBATE TOMORROR, NO SEDATION PER DR RHODES.
--- NOTE | 2022-08-01 18:28 | NUR ---
HD STARTED , HD NURSE AT BEDSIDE. WILL ENDORSE TO NIGHT NURSE.
--- NOTE | 2022-08-01 19:30 | NUR ---
RECEIVED AWAKE, NO SEDATION. ORALLY INTUBATED. AC 16, FIO2 30%, TVV 450, PEEP 5. SAT WDL. EDUCATIONAL FUNDRAISING DIRECTOR IS SHOWING NSR, IVF OF NS IS INFUSING AT TKO RATE VIA RUE PICC. PATIEN IS ON HEMODIALYSIS , ACCESS IS THE RIGHT IJ. ABDOMEN IS SOFT AND NON-DISTENDED. OGT FEEDING OF NEPHRO GOING AT 35 ML/HR, RESIDUAL MINIMAL. HOB ELEVATED. ON ASPIRATION PRECAUTION. THOMAS INTACT AND PATENT. FLEXISEAL INTACT AND PATENT, DRAINING LOOSE BROWN STOOLS. AFEBRILE.
[2022-08-02] VITALS (31 sets, daily range): BP systolic 117–142
[2022-08-02] MEDS: IPRATROPIUM/ALBUTEROL SULFATE 3 ML AMPUL.NEB (DUONEB) INH SCH ×6 (03:11→23:12)
[2022-08-02] MEDS: NAFCILLIN SODIUM 2 GM in NS 100 ML IV SCH ×4 (05:54→17:57)
[2022-08-02] MEDS: INSULIN REGULAR, HUMAN 100 UNITS/ML, 3 ML VIAL (humuLIN R) SUBCUT PRN ×3 (06:00→13:36)
[2022-08-02 06:03] LABS: ALBUMIN 1.6 g/dL (3.4-4.8); CALCIUM 7.3 mg/dL (8.4-11.0); CREATININE 3.16 mg/dL (0.55-1.30); TOTAL BILIRUBIN 5.2 mg/dL (0.0-1.0)
[2022-08-02 07:25] LABS: BASOPHILS % (AUTO) 0.3 % (0.0-2.0); HEMATOCRIT 27.5 % (36-54); HEMOGLOBIN 9.3 g/dL (14.0-18.0); LYMPHOCYTES # (AUTO) 0.4 K/uL (1.0-5.5); LYMPHOCYTES % (AUTO) 2.7 % (20.5-51.5); MEAN CORPUSCULAR HEMOGLOBIN 31 pg (27-31); MEAN CORPUSCULAR HGB CONC 34 % (32-36); MEAN CORPUSCULAR VOLUME 92 fL (79.0-98.0); MONOCYTES # (AUTO) 0.7 K/uL (0.0-1.0); MONOCYTES % (AUTO) 4.2 % (1.7-9.3); NEUTROPHILS # (AUTO) 14.9 K/uL (1.8-7.7); NEUTROPHILS % (AUTO) 92.8 % (40.0-70.0); PLATELET COUNT (AUTO) 50 K/uL (130-430); RED BLOOD CELL COUNT(AUTO) 2.98 MIL/uL (4.2-6.2); RED CELL DISTRIBUTION WIDTH 19.6 % (9.0-15.0)
--- NOTE | 2022-08-02 07:30 | NUR ---
RECEIVED AWAKE, NO SEDATION, PATIENT ABLE TO NOD HEAD TO SIMPLE YES AND NO QUESTIONS. EYES TRACK WELL. ORALLY INTUBATED. AC 14, FIO2 30%, TVV 450, PEEP 5. SAT WDL. SUSTAINABILITY PURCHASING AGENT IS SHOWING NSR, IVF OF NS IS INFUSING AT TKO RATE VIA RUE PICC. PATIENT IS ON HEMODIALYSIS , ACCESS IS THE RIGHT IJ. ABDOMEN IS SOFT AND NON-DISTENDED. OGT FEEDING OF NEPHRO GOING AT 35 ML/HR, RESIDUAL MINIMAL. HOB ELEVATED. ON ASPIRATION PRECAUTION. THOMAS INTACT AND PATENT. FLEXISEAL INTACT AND PATENT, DRAINING LOOSE BROWN STOOLS. AFEBRILE.
[2022-08-02] MEDS: CHOLECALCIFEROL (VITAMIN D3) 2,000 UNIT TABLET NG SCH (08:56)
[2022-08-02] MEDS: METOCLOPRAMIDE HCL 10 MG/2 ML VIAL IVP SCH ×2 (08:56→21:43)
[2022-08-02] MEDS: PANTOPRAZOLE SODIUM 40 MG/VIAL (PROTONIX) IVP SCH ×2 (08:56→21:44)
[2022-08-02] MEDS: INSULIN GLARGINE 100 UNITS/ML, 10 ML VIAL SUBCUT SCH ×2 (08:59→21:46)
[2022-08-02] MEDS: METHYLPREDNISOLONE SOD SUCC 40 MG/ML VIAL IVP SCH ×2 (09:00→21:47)
[2022-08-02] MEDS: MICAFUNGIN SODIUM IV SCH (10:48)
[2022-08-02] MEDS: NS IV SCH (10:48)
--- NOTE | 2022-08-02 14:44 | NUR ---
SPOKE WITH CORAL REQUESTING CALL BACK FROM DR. RHODES.
--- NOTE | 2022-08-02 15:59 | NUR ---
SPOKE WITH ELIEL REQUESTING CALL BACK FROM DR. RHODES. SECOND ATTEMPT.
--- NOTE | 2022-08-02 16:15 | NUR ---
EXTUBATED PT.. PLACED ON 35% COOL AEROSOL. NO RESP. DISTRESS NOTED. SPO2 = 98%. RR 10, HR 69
--- NOTE | 2022-08-02 18:30 | NUR ---
DR. PETERS CALLED FOR AN UPDATE REGARDING PATIENT. DR. PETERS GIVEN AN UPDATE. DR. PETERS ORDERED HEMODIALYSIS FOR TOMORROW 08/03/2022
--- NOTE | 2022-08-02 19:30 | NUR ---
RECEIVED AROUSABLE, RESPONDS TO YES OR NO QUESTIONS. PATIENT IS ON 35% COOL AEROSOL., SAT 91-92%. MAINTENANCE SHOP WELDER IS SHOWING NSR. NS TKO VIA RUEPICC. ABDOMEN IS SOFT AND NON-DISTENDED. OGT FEEDING OF NEPHRO AT 35 ML/HR. ON ASPIRATION PRECAUTION, HOB ELEVATED. THOMAS INTACT AND PATENT. FLEXISEAL INTACT AND PATENT. AFEBRILE.
[2022-08-03] VITALS (24 sets, daily range): BP systolic 104–153
[2022-08-03] MEDS: IPRATROPIUM/ALBUTEROL SULFATE 3 ML AMPUL.NEB (DUONEB) INH SCH ×5 (02:36→19:49)
[2022-08-03 05:33] LABS: BASOPHILS % (AUTO) 0.2 % (0.0-2.0); HEMATOCRIT 28.2 % (36-54); HEMOGLOBIN 9.3 g/dL (14.0-18.0); LYMPHOCYTES # (AUTO) 0.4 K/uL (1.0-5.5); LYMPHOCYTES % (AUTO) 2.2 % (20.5-51.5); MEAN CORPUSCULAR HEMOGLOBIN 31 pg (27-31); MEAN CORPUSCULAR HGB CONC 33 % (32-36); MEAN CORPUSCULAR VOLUME 93 fL (79.0-98.0); MONOCYTES # (AUTO) 0.6 K/uL (0.0-1.0); MONOCYTES % (AUTO) 3.4 % (1.7-9.3); NEUTROPHILS # (AUTO) 17.6 K/uL (1.8-7.7); NEUTROPHILS % (AUTO) 94.2 % (40.0-70.0); PLATELET COUNT (AUTO) 54 K/uL (130-430); RED BLOOD CELL COUNT(AUTO) 3.04 MIL/uL (4.2-6.2); RED CELL DISTRIBUTION WIDTH 20.1 % (9.0-15.0); WHITE BLOOD COUNT (AUTO) 18.7 K/uL (4.8-10.8)
[2022-08-03 05:51] LABS: ALBUMIN 1.6 g/dL (3.4-4.8); CALCIUM 7.5 mg/dL (8.4-11.0); CREATININE 3.79 mg/dL (0.55-1.30); TOTAL BILIRUBIN 5.8 mg/dL (0.0-1.0)
[2022-08-03 06:23] LABS: INR 1.6 (0.80-1.20); PROTHROMBIN TIME 16.2 SECS (9.5-12.5)
[2022-08-03] MEDS: NAFCILLIN SODIUM 2 GM in NS 100 ML IV SCH ×4 (06:25→17:57)
[2022-08-03] MEDS: INSULIN GLARGINE 100 UNITS/ML, 10 ML VIAL SUBCUT SCH ×2 (09:33→21:50)
[2022-08-03] MEDS: METOCLOPRAMIDE HCL 10 MG/2 ML VIAL IVP SCH ×2 (09:34→21:49)
[2022-08-03] MEDS: METHYLPREDNISOLONE SOD SUCC 40 MG/ML VIAL IVP SCH ×2 (09:34→21:51)
[2022-08-03] MEDS: CHOLECALCIFEROL (VITAMIN D3) 2,000 UNIT TABLET NG SCH (09:34)
[2022-08-03] MEDS: PANTOPRAZOLE SODIUM 40 MG/VIAL (PROTONIX) IVP SCH ×2 (09:34→21:48)
[2022-08-03] MEDS: NS IV SCH (11:00)
[2022-08-03] MEDS: MICAFUNGIN SODIUM IV SCH (11:00)
--- NOTE | 2022-08-03 11:23 | NUR ---
Nutrition F/U RD reviewed pts current EMR including diet hx, physician notes, nursing notes, pertinent labs/meds/procedures, care trends and care activity. Subjective Information 08/02: Pt successfully extubated. RD s/w primary RN regarding pt. RN reports that pt was extubated yesterday and NGT was placed. RD witnessed Nepro running @ goal (35mL/hr). RN said pt is tolerating TF fine, w/ low residuals. RN reports that flexiseal is still in place. RD suggested pt receive a swallow eval; RN said she would discuss w/ Dr. Per EMR review: Kye 11; Labs: A1c 9.36 H, WBC 18.7 H (worsening), Na 142 WNL, K+4.4 WNL, BUN 75 H, Cre 3.79 H, BG 163H, Ca 7.5 L; abd soft w/ active bowel sounds. Pt is currently meeting nutritional needs. Current Diet Order/Nutrition Support Nepro @ 35mL/hr, FWF 150mL q6h via OGT x 6 days & Dariel BID x 3 days % PO intake NPO Last BM 07/31 x 1 - pt has flexiseal New Estimated Energy Expenditure (kcals/day) 2014-1798 kcal (30-35 kcal/kg CBW [77kg] d/t ESRD) NEW Estimated Protein Required (g/day) 92-100g (1.2-1.3 g/kg CBW d/t critical illness, renal labs) Estimated Fluid Required (l/day) Refer to MD (renal labs) Problem/Etiology/Signs/Symptoms * Inadequate oral intake R/T decreased appetite AEB poor PO intake records (resolved). *Altered nutrition related labs RT kidney and liver disease AEB elevated BUN/Cre and elevated t.Bili and AST (ongoing) Expected Outcomes/Goals * EN tolerated at goal rate, EN provides >95% estimated nutritional needs, improvements in skin integrity, nutrition-related labs trending WNL, weight maintenance, BM q 1-3 days Dietitian Recommendations * Nepro @ 50 mL/hr (new goal rate), FWF 150mL q4h, Dariel BID via NGT, until swallow eval Provides (w/ Dariel): 2340 kcal, 102g PRO, 1772mL free water (inc FWF) Meets: 101% of lower est kcal, 102% of upper PRO needs * Recommend swallow eval Follow up *Moderate risk: f/u w/ pt in 3-5 days GS, MPH, RD
--- NOTE | 2022-08-03 11:29 | NUR ---
Dietitian Recommendations * Nepro @ 50 mL/hr (new goal rate), FWF 150mL q4h, Dariel BID via NGT, until swallow eval Provides (w/ Dariel):2340 kcal, 102g PRO, 1772mL free water (inc FWF) Meets: 101% of lower est kcal, 102% of upper PRO needs * Recommend swallow eval GS, MPH, RD Please refer to Nutrition F/U for further details. Thanks!
--- NOTE | 2022-08-03 12:16 | NUR ---
I have attempted to call pts family for consent for blood and PICC line. No answer. Message left. Primary RN has indicated he has called as well with no answer. Dr Max rounded and the primary nurse told him that we are unable to reach the family for consent for blood.
--- NOTE | 2022-08-03 23:45 | NUR ---
RT NOTE: 2134 Patient O2 increased to 4LPM nasal cannula due to SpO2 low. 2345 Patient given scheduled breathing tx, SpO2 improve post tx. Decreased O2 to 2LPM nasal cannula post tx. Patient tolerating well. Addendum: 08/04/22 at 0006 by Alia Gan RT Amended: Links added.
[2022-08-04] VITALS (23 sets, daily range): BP systolic 119–136
[2022-08-04] MEDS: NAFCILLIN SODIUM 2 GM in NS 100 ML IV SCH ×5 (00:01→23:24)
[2022-08-04] MEDS: IPRATROPIUM/ALBUTEROL SULFATE 3 ML AMPUL.NEB (DUONEB) INH SCH ×7 (00:02→23:25)
[2022-08-04 05:55] LABS: BASOPHILS % (AUTO) 0.2 % (0.0-2.0); EOSINOPHILS % (AUTO) 0.1 % (0.0-4.0); HEMOGLOBIN 9.9 g/dL (14.0-18.0); LYMPHOCYTES # (AUTO) 0.7 K/uL (1.0-5.5); LYMPHOCYTES % (AUTO) 3.3 % (20.5-51.5); MEAN CORPUSCULAR HEMOGLOBIN 31 pg (27-31); MEAN CORPUSCULAR HGB CONC 33 % (32-36); MEAN CORPUSCULAR VOLUME 93 fL (79.0-98.0); MONOCYTES % (AUTO) 5.1 % (1.7-9.3); NEUTROPHILS % (AUTO) 91.3 % (40.0-70.0); PLATELET COUNT (AUTO) 61 K/uL (130-430); RED BLOOD CELL COUNT(AUTO) 3.23 MIL/uL (4.2-6.2); WHITE BLOOD COUNT (AUTO) 19.7 K/uL (4.8-10.8)
[2022-08-04 06:02] LABS: ALBUMIN 1.6 g/dL (3.4-4.8); CALCIUM 7.9 mg/dL (8.4-11.0); CREATININE 3.19 mg/dL (0.55-1.30); TOTAL BILIRUBIN 5.1 mg/dL (0.0-1.0)
[2022-08-04] MEDS: INSULIN REGULAR, HUMAN 100 UNITS/ML, 3 ML VIAL (humuLIN R) SUBCUT PRN (06:17)
--- NOTE | 2022-08-04 07:00 | NUR ---
RECEIVED REPORT FROM OUTGOING NURSE. RECEIVED PATIENT RESTING IN BED EYES CLOSED. 4L NASAL CANNULA OXYGEN SATURATION 91%. CHEST RISE AND FALL OBSERVED. THOMAS CATH IN PLACE, FLEXISEAL IN PLACE DRAINING. NO S/SX DISTRESS/DISCOMFORT AT THIS TIME.
--- NOTE | 2022-08-04 08:45 | NUR ---
RT NOTES @ 0835 low sat, shallow breathing, @ 0845 pt to 40% 10L cool aerosol, improved 92-93%. Pt needs a lot of deep-breathing reenforcement, discussed with RN.
[2022-08-04] MEDS: CHOLECALCIFEROL (VITAMIN D3) 2,000 UNIT TABLET NG SCH (09:05)
[2022-08-04] MEDS: METOCLOPRAMIDE HCL 10 MG/2 ML VIAL IVP SCH ×2 (09:05→21:00)
[2022-08-04] MEDS: METHYLPREDNISOLONE SOD SUCC 40 MG/ML VIAL IVP SCH (09:05)
[2022-08-04] MEDS: PANTOPRAZOLE SODIUM 40 MG/VIAL (PROTONIX) IVP SCH ×2 (09:05→21:00)
[2022-08-04] MEDS: INSULIN GLARGINE 100 UNITS/ML, 10 ML VIAL SUBCUT SCH ×2 (09:19→21:15)
--- NOTE | 2022-08-04 11:00 | NUR ---
DR. RHODES ROUNDED AT BEDSIDE WITH PATIENT. NO NEW ORDERS AT THIS TIME.
--- NOTE | 2022-08-04 12:00 | NUR ---
RT NOTES Dr Kandy jackson, made aware of low sat on NC. Dr ordered bipap prn. @1220, placed bipap at bedside.
--- NOTE | 2022-08-04 12:14 | NUR ---
PT WAS SEEN FOR DYSPHAGIA. PT HAD MODERATE DELAY IN SWALLOW AND INCONSISTENT RESPONSE DUE TO MEDICAL CONDITION DURING THE TRIALS OF APPLE SAUCE. RECOMMENDATION NOTHING BY MOUTH ALTERNATE MODE OF FEEDING
[2022-08-04] MEDS: NS IV SCH (13:18)
[2022-08-04] MEDS: MICAFUNGIN SODIUM IV SCH (13:18)
--- NOTE | 2022-08-04 16:15 | NUR ---
Received report to assume care of the patient. Pt resting comfortably on 02 10L mask cool aerosol. Pt opens eyes to name. Tolerating tube feeding. SR on monitor.
--- NOTE | 2022-08-04 17:15 | NUR ---
Spoke to family and update given.
--- NOTE | 2022-08-04 19:30 | NUR ---
Report given to oncoming staff for assumption of care.
[2022-08-05] VITALS (24 sets, daily range): BP systolic 123–150
[2022-08-05] MEDS: IPRATROPIUM/ALBUTEROL SULFATE 3 ML AMPUL.NEB (DUONEB) INH SCH ×6 (04:52→23:18)
[2022-08-05 05:42] LABS: EOSINOPHILS # (AUTO) 0.1 K/uL (0.0-0.4); EOSINOPHILS % (AUTO) 0.4 % (0.0-4.0); HEMATOCRIT 29.9 % (36-54); HEMOGLOBIN 9.8 g/dL (14.0-18.0); LYMPHOCYTES # (AUTO) 1.9 K/uL (1.0-5.5); LYMPHOCYTES % (AUTO) 10.1 % (20.5-51.5); MEAN CORPUSCULAR HEMOGLOBIN 31 pg (27-31); MEAN CORPUSCULAR HGB CONC 33 % (32-36); MEAN CORPUSCULAR VOLUME 93 fL (79.0-98.0); MONOCYTES # (AUTO) 1.2 K/uL (0.0-1.0); MONOCYTES % (AUTO) 6.4 % (1.7-9.3); NEUTROPHILS # (AUTO) 15.4 K/uL (1.8-7.7); NEUTROPHILS % (AUTO) 83.1 % (40.0-70.0); PLATELET COUNT (AUTO) 63 K/uL (130-430); RED CELL DISTRIBUTION WIDTH 21.4 % (9.0-15.0); WHITE BLOOD COUNT (AUTO) 18.5 K/uL (4.8-10.8)
[2022-08-05 06:19] LABS: ALBUMIN 1.4 g/dL (3.4-4.8); CALCIUM 8.1 mg/dL (8.4-11.0); CREATININE 3.79 mg/dL (0.55-1.30); TOTAL BILIRUBIN 5.5 mg/dL (0.0-1.0)
[2022-08-05] MEDS: NAFCILLIN SODIUM 2 GM in NS 100 ML IV SCH (06:38)
[2022-08-05] MEDS: DEXTROSE 50% JECT 50 ML DISP.SYRIN IVP PRN ×2 (06:39→11:13)
[2022-08-05] MEDS: INSULIN GLARGINE 100 UNITS/ML, 10 ML VIAL SUBCUT SCH (09:00)
[2022-08-05] MEDS: PANTOPRAZOLE SODIUM 40 MG/VIAL (PROTONIX) IVP SCH ×2 (10:24→20:43)
[2022-08-05] MEDS: MICAFUNGIN SODIUM IV SCH (10:24)
[2022-08-05] MEDS: NS IV SCH (10:24)
[2022-08-05] MEDS: METOCLOPRAMIDE HCL 10 MG/2 ML VIAL IVP SCH ×2 (10:25→20:43)
[2022-08-05] MEDS: CHOLECALCIFEROL (VITAMIN D3) 2,000 UNIT TABLET NG SCH (10:25)
[2022-08-05] MEDS ORDERED: ALBUMIN HUMAN 25% 50 ML IV ONE ×2 (10:49→11:15)
[2022-08-05] MEDS ORDERED: ALBUMIN HUMAN 25% 100 ML IV ONE (12:00)
--- NOTE | 2022-08-05 15:08 | NUR ---
PHYSICAL THERAPY CO-SIGN The Physical Therapy Progress Notes documented by [employer] Converter have been reviewed. Reviewed/Co-Signed by: Socrates Bee Documentation Done by:IGGY SCOTT Addendum: 08/05/22 at 1509 by Socrates Bee PT Amended: Links added.
--- NOTE | 2022-08-05 17:54 | NUR ---
CONSULTATION PAGED/CALLED Reason for Consultation: MAYKEL Person Who was Notified: BURKE Consulting Physician: MAGO KABA Fashion Designer Specialty: N/A Ordering Physician: JAMAAL WHITLOCK
--- NOTE | 2022-08-05 17:56 | NUR ---
rt notes 1405 pt placed on 2l oxymizer. sat 93% hr 96 rr 13. Addendum: 08/05/22 at 1758 by Irene Ozuna RT Amended: Links added.
--- NOTE | 2022-08-05 20:05 | NUR ---
END OF SHIFT SUMMARY: Patient has seen family early in the day prior to dialysis, that lasted for 3 hours and took off 1.8 liters of fluid. Patient has had O2 reduced and has participated in PT with slight activity . Also, patient spoke with mother during the day on Face Time and had quiet, simple but clear speech. Patient has been evaluated by each specialist and patient will continue to be observed in ICU as everything continues to improve. Patient to be evaluated tomorrow for stroke through MRI of brain and re evaluated for swallow evaluation. If results are poor, MD will discuss PEG placement with family. After today's activity, family indicated that patient is looking much improved. Patient's glucose level remains low so social science research assistant indicates that he will keep patient on sliding scale while he figures out what issues patient is having with Lantus. Patient is currently without issues at the end of the shift.
[2022-08-06] VITALS (26 sets, daily range): BP systolic 102–146
[2022-08-06] MEDS: IPRATROPIUM/ALBUTEROL SULFATE 3 ML AMPUL.NEB (DUONEB) INH SCH ×6 (03:22→23:28)
[2022-08-06 06:17] LABS: BASOPHILS % (AUTO) 0.2 % (0.0-2.0); EOSINOPHILS # (AUTO) 0.3 K/uL (0.0-0.4); EOSINOPHILS % (AUTO) 1.6 % (0.0-4.0); HEMOGLOBIN 8.7 g/dL (14.0-18.0); LYMPHOCYTES # (AUTO) 1.1 K/uL (1.0-5.5); LYMPHOCYTES % (AUTO) 6.6 % (20.5-51.5); MEAN CORPUSCULAR HEMOGLOBIN 32 pg (27-31); MEAN CORPUSCULAR HGB CONC 34 % (32-36); MEAN CORPUSCULAR VOLUME 94 fL (79.0-98.0); MONOCYTES # (AUTO) 0.9 K/uL (0.0-1.0); MONOCYTES % (AUTO) 5.7 % (1.7-9.3); NEUTROPHILS # (AUTO) 13.7 K/uL (1.8-7.7); NEUTROPHILS % (AUTO) 85.9 % (40.0-70.0); PLATELET COUNT (AUTO) 53 K/uL (130-430); RED BLOOD CELL COUNT(AUTO) 2.75 MIL/uL (4.2-6.2)
[2022-08-06 06:38] LABS: CALCIUM 8.3 mg/dL (8.4-11.0); CREATININE 3.19 mg/dL (0.55-1.30)
[2022-08-06 08:06] LABS: HEPATITIS A AB, IgM Negative (Negative); HEPATITIS B CORE AB, IgM Negative (Negative); HEPATITIS B SURFACE AG Negative (Negative)
[2022-08-06] MEDS: PANTOPRAZOLE SODIUM 40 MG/VIAL (PROTONIX) IVP SCH ×2 (09:17→21:42)
[2022-08-06] MEDS: CHOLECALCIFEROL (VITAMIN D3) 2,000 UNIT TABLET NG SCH (09:17)
[2022-08-06] MEDS: METOCLOPRAMIDE HCL 10 MG/2 ML VIAL IVP SCH ×2 (09:17→21:42)
[2022-08-06] MEDS: MICAFUNGIN SODIUM IV SCH (09:18)
[2022-08-06] MEDS: NS IV SCH (09:18)
--- NOTE | 2022-08-06 09:45 | NUR ---
DR. PETERS, WILL PUT IN AN ODER FOR PATIENT TO HAVE HEMODIALYSIS TODAY.
--- NOTE | 2022-08-06 09:45 | NUR ---
PATIENT DUE TO HAVE AN MRI WITHOUT CONTRAST TODAY. CALLED DOWN TO RADIOLOGY TO OBTAIN AN ETA ON THE MRI. SUBSTATION OPERATOR CHIEF STATED THAT THE MRI MACHINE IS DOWN TODAY AND WILL NOT BE FIXED TODAY.
--- NOTE | 2022-08-06 10:38 | NUR ---
paged DR. RHODES AT 0930 AND 4030 TO INFORM HIM OF TODAY'S CHEST XRAY RESULTS. NO ANSWER, MESSAGE LEFT TO CALL [facility] ICU.
[2022-08-06] MEDS: CEFEPIME 2 GM in D5W 100 ML IV SCH (11:07)
--- NOTE | 2022-08-06 11:45 | NUR ---
DR. RHODES ROUNDING AND INFORMED OF PATIENT'S XHEST X-RAY RESULTS. DR. RHODES ORDERED PATIENT TO BE ON HIS LEFT SIDE WEDGE ON RIGHT SIDE TO ASSIST WITH SECRETIONS CLEARING. ALSO, ORDERED IS ANOTHER CHEST X-RAY FOR TOMORROW. DR. RHODES STATES HE WILL FOLLOW UP TOMORROW.
--- NOTE | 2022-08-06 14:07 | NUR ---
RN MEDICALLY CLEARED PATIENT FOR PT TREATMENT HOWEVER PATIENT REFUSED TREATMENT DESPITE MAX ENCOURAGEMENT. WILL TRY AGAIN TOMORROW.
--- NOTE | 2022-08-06 14:15 | NUR ---
OPEN HEARTH MELTER HERE TO PERFORM CAROTID SCAN. CANCELLED SCAN, PATIENT HAS A RIGHT IJ CASA CATH AND CANNOT BE ON RIGHT SIDE TO SCAN LEFT CAROTID DUE TO RIGHT LUNG BEING COMPROMISED. PHYSICIAN NOTIFIED.
--- NOTE | 2022-08-06 16:50 | NUR ---
DR. HERRERA ROUNDED AT PATIENT'S BEDSIDE NO NEW ORDERS AT THIS TIME
[2022-08-06] MEDS ORDERED: ACETAMINOPHEN 500 MG TABLET PO PRN (17:30)
[2022-08-06] MEDS: ACETYLCYSTEINE 20% 4 ML VIAL (RT) INH SCH ×3 (17:36→23:28)
--- NOTE | 2022-08-06 17:50 | NUR ---
PATIENT RECEIVING DIALYSIS. NOTICING A DROP IN OXYGEN SATURATIONS. DIALYSIS D/C SO STAFF MAY ATTEND TO PATIENTS OXYGEN NEED. 1500 ML REMOVED FROM PATIENT DURING DIALYSIS. ER PHYSICIAN PAGED FOR POSS INTUBATION.
[2022-08-06] MEDS ORDERED: fentaNYL CITRATE/PF 100 MCG/2 ML AMP IVP ONE (18:00)
[2022-08-06] MEDS ORDERED: ROCURONIUM BROMIDE 10 MG/ML (ZEMURON) IV ONE (18:00)
[2022-08-06] MEDS ORDERED: ETOMIDATE 20 MG/ 10 ML VIAL (AMIDATE) IVP ONE (18:00)
[2022-08-06] MEDS ORDERED: fentaNYL CITRATE/PF 100 MCG/2 ML AMP ONE (18:01)
--- NOTE | 2022-08-06 18:05 | NUR ---
CONSULT PAGING DR. RHODES FOR STATUS UPDATE PER PRIMARY RN SPOKE TO SARIAH
--- NOTE | 2022-08-06 18:08 | NUR ---
MOTHER CALLED TO GIVE UPDATE ON INTUBATION. SPOKE WITH HER.
--- NOTE | 2022-08-06 18:09 | NUR ---
PHONE CALL PLACED TO FATHER FOR AN UPDATE, NO ANSWER. NO ROOM ON VOICEMAIL SYSTEM TO LEAVE VOICEMAIL
--- NOTE | 2022-08-06 18:10 | NUR ---
SPOKE WITH PATIENT'S COUSIN GRECIA WHOM IS ON FACE SHEET. PROPER NOTIFICATIONS AND UPDATE GIVEN.
--- NOTE | 2022-08-06 18:12 | NUR ---
DR. RHODES CALLED BACK. UPDATE GIVEN ON PATIENT. DR. RHODES ORDER VENT SETTINGS FOLLOWS AC 16, 450 TV, 100% FIO2, PEEP 5. ABG TO BE DRAWN IN 30 MINS. 10-15 MCG STARTING DOSE FOR DIPRIVAN TITRATE ACCORDINGLY.
[2022-08-06] MEDS ORDERED: PROPOFOL DRIP 100 ML IV PRN (18:15)
--- NOTE | 2022-08-06 18:22 | NUR ---
RT NOTES 1740 HHN TX GIVEN, PT DESAT, TAKEN OFF TX AND PLACED ON NRB, SX OROPHARYNX, LARGE AMOUNT THIN BLOODY SECRETIONS. DIALYSIS STOPPED, PT REPOSITIONED AND SATURATION INCREASED TO 97%. 1800 EAnahy ZARATE TO INTUBATE TO PROTECT AIRWAY 8.0@25CM LL AND PLACED ON VENTILATOR. Addendum: 08/06/22 at 1828 by Irene Ozuna RT Amended: Links added.
--- NOTE | 2022-08-06 19:00 | NUR ---
REPORT GIVEN TO ONCOMING NURSE. PATIENT VITAL SIGNS WNL. NO S/SX DISTRESS AT THIS TIME. PATIENT LYING SUPINE IN BED, EYES, CLOSED VENT SETTINGS AC16, 450 TV, 100% FIO2, PEEP5.
[2022-08-07] VITALS (29 sets, daily range): BP systolic 102–128
[2022-08-07] MEDS: ACETYLCYSTEINE 20% 4 ML VIAL (RT) INH SCH ×6 (03:12→22:25)
[2022-08-07] MEDS: IPRATROPIUM/ALBUTEROL SULFATE 3 ML AMPUL.NEB (DUONEB) INH SCH ×6 (03:12→22:25)
[2022-08-07 05:08] LABS: BASOPHILS % (AUTO) 0.2 % (0.0-2.0); EOSINOPHILS # (AUTO) 0.3 K/uL (0.0-0.4); EOSINOPHILS % (AUTO) 2.3 % (0.0-4.0); HEMATOCRIT 24.1 % (36-54); LYMPHOCYTES # (AUTO) 1.3 K/uL (1.0-5.5); LYMPHOCYTES % (AUTO) 9.4 % (20.5-51.5); MEAN CORPUSCULAR HEMOGLOBIN 31 pg (27-31); MEAN CORPUSCULAR HGB CONC 33 % (32-36); MEAN CORPUSCULAR VOLUME 94 fL (79.0-98.0); MONOCYTES # (AUTO) 0.7 K/uL (0.0-1.0); MONOCYTES % (AUTO) 5.2 % (1.7-9.3); NEUTROPHILS # (AUTO) 11.7 K/uL (1.8-7.7); NEUTROPHILS % (AUTO) 82.9 % (40.0-70.0); RED BLOOD CELL COUNT(AUTO) 2.56 MIL/uL (4.2-6.2); RED CELL DISTRIBUTION WIDTH 24.3 % (9.0-15.0); WHITE BLOOD COUNT (AUTO) 14.1 K/uL (4.8-10.8)
[2022-08-07 05:37] LABS: ALBUMIN 1.5 g/dL (3.4-4.8); CREATININE 2.8 mg/dL (0.55-1.30); TOTAL BILIRUBIN 3.7 mg/dL (0.0-1.0)
[2022-08-07 05:51] LABS: INR 1.6 (0.80-1.20); PROTHROMBIN TIME 16.5 SECS (9.5-12.5)
[2022-08-07 07:08] LABS: PLATELET COUNT (AUTO) 44 K/uL (130-430)
--- NOTE | 2022-08-07 07:17 | NUR ---
R NOTES FIO2 to 0.40. Will monitor pt.
[2022-08-07] MEDS: MICAFUNGIN SODIUM IV SCH (08:42)
[2022-08-07] MEDS: NS IV SCH (08:42)
[2022-08-07] MEDS: PANTOPRAZOLE SODIUM 40 MG/VIAL (PROTONIX) IVP SCH (08:42)
[2022-08-07] MEDS: METOCLOPRAMIDE HCL 10 MG/2 ML VIAL IVP SCH ×2 (08:43→21:00)
[2022-08-07] MEDS: CHOLECALCIFEROL (VITAMIN D3) 2,000 UNIT TABLET NG SCH (08:43)
--- NOTE | 2022-08-07 11:56 | NUR ---
PHYSICAL THERAPY CO-SIGN The Physical Therapy Progress Notes documented by Director Of Market Research have been reviewed. Reviewed/Co-Signed by: Melvin Ambrose Documentation Done by:IGGY SCOTT Addendum: 08/07/22 at 1157 by Melvin Ambrose PT Amended: Links added.
[2022-08-07] MEDS: CEFEPIME 2 GM in D5W 100 ML IV SCH (12:27)
[2022-08-07] MEDS: INSULIN REGULAR, HUMAN 100 UNITS/ML, 3 ML VIAL (humuLIN R) SUBCUT PRN ×2 (17:59→22:43)
--- NOTE | 2022-08-07 19:10 | NUR ---
Closing Shift summary: Pt in no signs of pain or distress. Remains intubated and sedated. Attempted phone call to pt's mother for updates with plan of care with Dr. Gaitan, no answer, left message. Dr. Gaitan suggested tracheostomy placement. Endorsed plan of care to RN.
[2022-08-08] VITALS (36 sets, daily range): BP systolic 83–129
[2022-08-08] MEDS: ACETYLCYSTEINE 20% 4 ML VIAL (RT) INH SCH ×6 (03:05→23:11)
[2022-08-08] MEDS: IPRATROPIUM/ALBUTEROL SULFATE 3 ML AMPUL.NEB (DUONEB) INH SCH ×6 (03:05→23:11)
[2022-08-08 06:03] LABS: ALBUMIN 1.3 g/dL (3.4-4.8); CREATININE 3.44 mg/dL (0.55-1.30); PHOSPHORUS 4.7 mg/dL (2.7-4.5); TOTAL BILIRUBIN 3.1 mg/dL (0.0-1.0)
[2022-08-08] MEDS: SUCRALFATE 1 GM/10 ML UDC GT SCH ×2 (06:49→17:00)
--- NOTE | 2022-08-08 07:30 | NUR ---
RECEIVED AWAKE, PATIENT ABLE TO NOD HEAD TO SIMPLE YES AND NO QUESTIONS. EYES TRACK WELL. ORALLY INTUBATED. AC 14, FIO2 30%, TVV 450, PEEP 5. SAT WDL. CH[place] DECORATOR IS SHOWING NSR, IVF OF NS IS INFUSING AT TKO RATE VIA RUE PICC. PATIENT IS ON HEMODIALYSIS , ACCESS IS THE RIGHT IJ. ABDOMEN IS SOFT AND NON-DISTENDED. OGT FEEDING OF NEPHRO GOING AT 35 ML/HR, RESIDUAL MINIMAL. HOB ELEVATED. ON ASPIRATION PRECAUTION. THOMAS INTACT AND PATENT. FLEXISEAL INTACT AND PATENT, DRAINING LOOSE BROWN STOOLS. AFEBRILE.
[2022-08-08 07:39] LABS: BASOPHILS % (AUTO) 0.2 % (0.0-2.0); EOSINOPHILS # (AUTO) 0.2 K/uL (0.0-0.4); EOSINOPHILS % (AUTO) 2.3 % (0.0-4.0); HEMATOCRIT 22.3 % (36-54); HEMOGLOBIN 7.4 g/dL (14.0-18.0); LYMPHOCYTES # (AUTO) 0.7 K/uL (1.0-5.5); LYMPHOCYTES % (AUTO) 6.5 % (20.5-51.5); MEAN CORPUSCULAR HEMOGLOBIN 32 pg (27-31); MEAN CORPUSCULAR HGB CONC 33 % (32-36); MEAN CORPUSCULAR VOLUME 95 fL (79.0-98.0); MONOCYTES # (AUTO) 0.7 K/uL (0.0-1.0); MONOCYTES % (AUTO) 6.6 % (1.7-9.3); NEUTROPHILS # (AUTO) 9.2 K/uL (1.8-7.7); NEUTROPHILS % (AUTO) 84.4 % (40.0-70.0); RED BLOOD CELL COUNT(AUTO) 2.34 MIL/uL (4.2-6.2); RED CELL DISTRIBUTION WIDTH 25.5 % (9.0-15.0); WHITE BLOOD COUNT (AUTO) 10.9 K/uL (4.8-10.8)
[2022-08-08 07:50] LABS: PLATELET COUNT (AUTO) 47 K/uL (130-430)
[2022-08-08] MEDS ORDERED: DIATR MEGLU/DIATRIZ SOD 30 ML SOLUTION PO ONE (08:34)
[2022-08-08] MEDS: NS IV SCH (08:40)
[2022-08-08] MEDS: CHOLECALCIFEROL (VITAMIN D3) 2,000 UNIT TABLET NG SCH (08:40)
[2022-08-08] MEDS: METOCLOPRAMIDE HCL 10 MG/2 ML VIAL IVP SCH ×2 (08:40→21:15)
[2022-08-08] MEDS: MICAFUNGIN SODIUM IV SCH (08:40)
[2022-08-08] MEDS: CEFEPIME 2 GM in D5W 100 ML IV SCH (11:11)
--- NOTE | 2022-08-08 13:00 | NUR ---
Nutrition F/U Nutrition F/U RD reviewed pts current EMR including diet hx, physician notes, nursing notes, pertinent labs/meds/procedures, care trends and care activity. Admitting Dx: Hyperglycemia and dehydration Subjective Information: RD rounded to ICU and spoke w/ pt's primary RN this afternoon. He stated that pt will have abd CT in an hour; GRV was high overnight, so TF was not at goal for this reason (RD witnessed Nepro infusing at 40 ml/hr w/ 284 ml infused). He also confirmed that attending MD put a surgical consult for trach and GT. Per ICU rounds, pt was re-intubated last night and is sedated on diprivan (5 mcg/kg/min). RN also reported that pt's BG have been stable -- 176 mg/dl at 1000 and checking again at 1400 as per physician order (Q4H). Current Diet Order/Nutrition Support: Nepro at 50 mm/hr, Free Water Flush: 150 ml q6h via NGT x4 days & Dariel BID x8 days % PO intake NPO Last BM 100 ml via flexiseal last night per RN report NEW Estimated Energy Expenditure (kcals/day) 1711 (PSU 2033b d/t critical illness, intubated; Ve: 7.3, Tmax: 36.9'C) Estimated Protein Required (g/day) 92-100 (1.2-1.3 g/kg CBW d/t critical illness, renal labs) Estimated Fluid Required (l/day) Refer to MD (renal labs) Problem/Etiology/Signs/Symptoms * Inadequate oral intake R/T decreased appetite AEB poor PO intake records. *Resolved * Altered nutrition related labs RT kidney and liver disease AEB elevated BUN/Cre and elevated t.Bili and AST. *Ongoing Expected Outcomes/Goals * EN tolerated at goal rate, EN provides >95% estimated nutritional needs, improvements in skin integrity, nutrition-related labs trending WNL, weight maintenance, BM q 1-3 days Dietitian Recommendations * Nepro at 50 mL/hr (new goal rate), Free Water Flush: 150 ml q4h, Dareil BID via NGT Provides (w/ Dariel): 2340 kcal/day, 102 gm protein/day, and 1772 ml free water/day Meets: 101% of lower estimated kcal needs, 102% of upper estimated protein needs Follow up *Moderate Risk: F/U in 3-5 days
--- NOTE | 2022-08-08 13:10 | NUR ---
Dietitian Recommendations * Nepro at 50 mL/hr (new goal rate), Free Water Flush: 150 ml q4h, Dariel BID via NGT Provides (w/ Dariel): 2340 kcal/day, 102 gm protein/day, and 1772 ml free water/day Meets: 101% of lower estimated kcal needs, 102% of upper estimated protein needs LP, MS, RD Please refer to Nutrition F/U for details.
--- NOTE | 2022-08-08 13:20 | NUR ---
PHYSICAL THERAPY CO-SIGN The Physical Therapy Progress Notes documented by Hand Crown Pouncer have been reviewed. Reviewed/Co-Signed by: Melvin Ambrose Documentation Done by:IGGY SCOTT Addendum: 08/08/22 at 1320 by Melvin Ambrose PT Amended: Links added.
--- NOTE | 2022-08-08 14:30 | NUR ---
RT NOTES Assisted in transporting pt to CT, bagged with 100% O2 via resus. bag to ETT to and from ct. placed pt on vent once in CT and back in ICU. a/w remains secure/patent.
--- NOTE | 2022-08-08 15:30 | NUR ---
WOUND EVALUATION: Late note for 08/08/2022 at 1530 secondary to patient care. Wound Consult received from Dr. Burdick. Thank you, Dr. Burdick, for the consult. Patient received in a [place] Bed with a mattress, awake, nonverbal, nonresponsive to verbal commands. Patient is unable to turn independently. Kye Score is a 12. Past Medical History: Hepatitis C, Asthma, Hypertension, Chronic Back Pain, Diabetes Mellitus Type II. Recent Labs: WBC 10.9, RBC 2.34, hemoglobin 7.4, hematocrit 22.3, platelets 47, ESR 83, BUN 52, creatinine 3.44, GFR 24, glucose 177, POC glucose 146, alkaline phosphatase 149.5, albumin 1.3. Microbiology: Endotracheal sputum culture results in progress. Intrinsic factors that delay wound healing: Asthma, Hyperglycemia, severe Hypoalbuminemia, Diabetes Mellitus Type II. Extrinsic factors that delay wound healing: Immobility. Wound Assessment: 1. Sacral-Coccygeal area: Unstageable pressure ulcer, present on admission. Wound bed has 40% dark discolored tissue under the skin, 60% light pink tissue. No odor, small yellow-red drainage. Periwound intact. Wound measures 10.8 cm x 11.0 cm. Recommend: Cleanse wound with normal saline. Apply moisture barrier cream to periwound. Apply Venelex ointment to open portions of wound bed. Apply alginate dressing to dark discolored areas underneath the skin cover with nonadhesive foam dressings. Secure with transparent dressings. Perform wound care daily, and as needed for dressing soiling or dislodgement. Offload wound site at all times. 2. Right Posterior Heel: sDTI. Site has 60% purple discoloration, 40% red discoloration. No odor, no drainage. Area is not soft or boggy. Site measures 3.5 cm x 3.4 cm. Recommend: [place] site with Betadine. Allow Betadine to air dry. Cover site with foam dressing. Elevate offload and float bilateral heels with 1 pillow lengthwise under each extremity at all times. 3. Left Posterior Heel: Blanchable redness. Recommend: Cover site with foam dressing. Elevate offload and float bilateral heels with 1 pillow lengthwise under each extremity at all times. 4. Right Lateral Wrist: Skin tear. Site has 95% pink tissue, 5% red tissue. No odor, no drainage. Perimeter of skin tear intact. Site measures 1.4 cm x 1.6 cm. Recommend: Cleanse skin tear with normal saline. Apply Sureprep to perimeter of skin tear. Apply oil emulsion dressing to skin tear. Cover with foam dressing. Perform site care daily, and as needed for dressing soiling or dislodgment. 5. Left Wrist: Skin tear. Site has 70% pink tissue, 30% red tissue. No odor, no drainage. Perimeter of skin tear intact. Site measures 1.1 cm x 1.7 cm. Recommend: Cleanse skin tear with normal saline. Apply Sureprep to perimeter of skin tear. Apply oil emulsion dressing to skin tear. Cover with foam dressing. Perform site care daily, and as needed for dressing soiling or dislodgment. 6. Left Dorsal Hand near Thumb: Skin tear. Site has 95% pink tissue, 5% red tissue. No odor, no drainage. Perimeter of skin tear intact. Site measures 3.0 cm x 3.0 cm. Recommend: Cleanse skin tear with normal saline. Apply Sureprep to perimeter of skin tear. Apply oil emulsion dressing to skin tear. Cover with foam dressing. Perform site care daily, and as needed for dressing soiling or dislodgment. Also recommend: Reposition patient side to side every 2 hours with 1 pillow underneath trunk and 1 pillow underneath pelvis (there should be a gap in between pillows where the sacral area is offloaded, you should be able to place your hand in between patient's sacral area and bed). Off-load pressure areas with pillows for pressure re-distribution. Offload, elevate and float bilateral heels with 1 pillow lengthwise under each extremity at all times. Perform skin care and monitor skin integrity Q shift. Use moisture barrier cream on buttocks and other moisture susceptible areas QID and as needed for soiling. Place patient on a P500 low air loss mattress.
[2022-08-08] MEDS ORDERED: HEPARIN SODIUM,PORCINE 5,000 UNITS/ML VIAL ONE (17:05)
[2022-08-09] VITALS (36 sets, daily range): BP systolic 86–128
[2022-08-09] MEDS: IPRATROPIUM/ALBUTEROL SULFATE 3 ML AMPUL.NEB (DUONEB) INH SCH ×6 (03:00→23:38)
[2022-08-09] MEDS: ACETYLCYSTEINE 20% 4 ML VIAL (RT) INH SCH ×5 (03:01→19:58)
[2022-08-09 06:01] LABS: CALCIUM 7.9 mg/dL (8.4-11.0); CREATININE 2.54 mg/dL (0.55-1.30)
[2022-08-09] MEDS: SUCRALFATE 1 GM/10 ML UDC GT SCH ×2 (06:45→17:00)
--- NOTE | 2022-08-09 07:12 | NUR ---
SPOKE WITH KAILYN REQUESTING ORDERS FROM DR. GALEANO.
[2022-08-09 07:30] LABS: BASOPHILS % (AUTO) 0.3 % (0.0-2.0); EOSINOPHILS # (AUTO) 0.3 K/uL (0.0-0.4); EOSINOPHILS % (AUTO) 2.9 % (0.0-4.0); HEMOGLOBIN 8.3 g/dL (14.0-18.0); LYMPHOCYTES # (AUTO) 0.6 K/uL (1.0-5.5); LYMPHOCYTES % (AUTO) 6.4 % (20.5-51.5); MEAN CORPUSCULAR HEMOGLOBIN 31 pg (27-31); MEAN CORPUSCULAR HGB CONC 33 % (32-36); MEAN CORPUSCULAR VOLUME 94 fL (79.0-98.0); MONOCYTES # (AUTO) 0.6 K/uL (0.0-1.0); MONOCYTES % (AUTO) 5.6 % (1.7-9.3); NEUTROPHILS # (AUTO) 8.4 K/uL (1.8-7.7); NEUTROPHILS % (AUTO) 84.8 % (40.0-70.0); RED BLOOD CELL COUNT(AUTO) 2.66 MIL/uL (4.2-6.2); RED CELL DISTRIBUTION WIDTH 22.5 % (9.0-15.0); WHITE BLOOD COUNT (AUTO) 9.9 K/uL (4.8-10.8)
[2022-08-09 08:00] LABS: PLATELET COUNT (AUTO) 43 K/uL (130-430)
--- NOTE | 2022-08-09 08:00 | NUR ---
PATIENT STABLE VITALS SIGNS IN NORMAL LIMITS SR 72 ON MONITOR PLATELETS 43 ( DOCTOR INFORMED ) PATIENT WILL HAVE PROCEDURE EXTUBATION AND PLACE A TRACHEOSTOMY PATIENT STILL IN VENT R 16 T 450 PEEP 5 FI02 30% DOCTOR FROYLAN [place] TO GIVE FRESH FROZEN PLASM ONE UNIT AND PLATELETS ONE UNITS IN HOLD FOR THE PROCEDURE ORAL CARE WAS PERFORMED
[2022-08-09 08:04] LABS: ERYTHROCYTE SEDIMENTATION RATE 83 MM/HR (0-15)
--- NOTE | 2022-08-09 09:29 | NUR ---
ONE UNIT OF PLATELETS WAS GAVE NOT BLOOD REACTION PATIENT STILL STABLE VITALS SIGNS IN NORMAL LIMITS SR 72 ON MONITOR
[2022-08-09] MEDS: CHOLECALCIFEROL (VITAMIN D3) 2,000 UNIT TABLET NG SCH (10:06)
[2022-08-09] MEDS: METOCLOPRAMIDE HCL 10 MG/2 ML VIAL IVP SCH ×2 (10:07→21:25)
[2022-08-09] MEDS: NS IV SCH (10:09)
[2022-08-09] MEDS: MICAFUNGIN SODIUM IV SCH (10:09)
--- NOTE | 2022-08-09 10:42 | NUR ---
PATIENT REMAINS NPO FOR PROCEDURE
--- NOTE | 2022-08-09 11:35 | NUR ---
PATIENT STABLE VITALS SIGNS IN NORMAL LIMIT NOT COMPLAINING OF PAIN AT THIS TIME WAITING FOR PROCEDURE
--- NOTE | 2022-08-09 12:12 | NUR ---
RN DID NOT MEDICALLY CLEAR PATIENT FOR TREATMENT D/T WAITING FOR PROCEDURE.
[2022-08-09] MEDS: CEFEPIME 2 GM in D5W 100 ML IV SCH (13:11)
--- NOTE | 2022-08-09 13:43 | NUR ---
MD CALLED PT'S MOTHER MEG, SHE ANSWERED THE CALL. DR THOMPSON ANESTHESIOLOGIST SPOKE TO HER FOR THE TYPE OF ANESTHESIA TO BE USED.
--- NOTE | 2022-08-09 14:06 | NUR ---
PATIENT PLATELES WAS INFUSING PATIENT LU TO OR FOR THE PROCEDURE
--- NOTE | 2022-08-09 14:09 | NUR ---
TO O.R. TRANSPORTED VIA BED TO OPERATING ROOM, RDeni SURGERY STAFF, RN ACCOMPANYING THE PATIENT.
[2022-08-09] MEDS ORDERED: MIDAZOLAM HCL 5 MG/ML VIAL (VERSED) IV ONE (15:38)
[2022-08-09] MEDS ORDERED: NS 1000 ML IV.SOLN IV ONE (15:38)
[2022-08-09] MEDS ORDERED: fentaNYL CITRATE/PF 100 MCG/2 ML AMP ONE (15:38)
[2022-08-09] MEDS ORDERED: WATER FOR IRRIGATION,STERILE 1,000 ML IRRIG.SOLN IR ONE (15:38)
[2022-08-09] MEDS ORDERED: NS IRRIG SOLN 1000 ML IR ONE (15:38)
[2022-08-09] MEDS ORDERED: SEVOFLURANE 15 MIN GAS INH ONE (15:38)
[2022-08-09] MEDS ORDERED: BUPIVACAINE /PF 0.25% 30 ML VIAL INJ ONE (15:38)
[2022-08-09] MEDS ORDERED: ROCURONIUM BROMIDE 10 MG/ML (ZEMURON) ONE (15:38)
[2022-08-09] MEDS ORDERED: NOREPINEPHRINE 4 MG/4 ML VIAL IV ONE ×2 (15:41)
--- NOTE | 2022-08-09 15:45 | NUR ---
RT NOTES 1540 Pt brought back to ICU 6 VIA 15L BVM. Pt saturating 100%, post arrival to ICU, placed pt back to Vent (AC 16 - 50% FIO2 PER NAIMA VAUGHN). PT SXN LOUISE SWITCHED TO TRACH SXN. OBTURATOR ATTACHED TO THE VENT, SPARE TRACH AT BEDSIDE ALONG WITH BVM. 1555 PT TITRATED O2 TO 40%, PT SATURATING 100%.WILL CONT TO MONITOR PT.
--- NOTE | 2022-08-09 16:00 | NUR ---
PATIENT CAME BACK FROM OR PLATELETS WAS FINISH OVER THER AT 1500 NOW PATIENT BP WAS LOW AND WE START THE LEVOPHED ( NOREPINEPHRINE ) PATIENT WAS ALSO BLEEDING FOM J TUBE AND THE TRACHEOSTOMY I PLACE THE PATIENT AN BINDER AND I CALL DOCTOR FROYLAN AND HE GAVE ME ORDER FOR ONE MORE UNIT OF PLATELETS NOW PATIENT VITALS SIGNS ARE IN NORAL LIMITS THEY GAVE FENTANYL 50 MG AND VERSE 100 MG IN OR PATIENT STABLE
[2022-08-09] MEDS: NOREPINEPHRINE BITARTRATE 8 MG in D5W 242 ML IV PRN (16:58)
--- NOTE | 2022-08-09 18:55 | NUR ---
patient stable vitals signs in normal limits not complaining of pain at this time i stop the norepinephrine blood pressure get to barbara
--- NOTE | 2022-08-09 19:32 | NUR ---
I CALL DOCTOR FROYLAN AND TOLD HIM THAT HE HAVE TO INFORMED THE FAMILY ABOUT THE WOUND THE WOUND CARE NURSE ASK NOW HE IS AWARE
[2022-08-09] MEDS: MORPHINE 4 MG INJ. 4 MG/ML VIAL IVP PRN (21:25)
[2022-08-10] VITALS (32 sets, daily range): BP systolic 65–132
[2022-08-10] MEDS: IPRATROPIUM/ALBUTEROL SULFATE 3 ML AMPUL.NEB (DUONEB) INH SCH ×6 (03:16→23:42)
[2022-08-10] MEDS: ACETYLCYSTEINE 20% 4 ML VIAL (RT) INH SCH ×6 (03:32→23:43)
[2022-08-10 05:40] LABS: BASOPHILS % (AUTO) 0.6 % (0.0-2.0); EOSINOPHILS # (AUTO) 0.2 K/uL (0.0-0.4); EOSINOPHILS % (AUTO) 2.8 % (0.0-4.0); HEMATOCRIT 22.7 % (36-54); HEMOGLOBIN 7.6 g/dL (14.0-18.0); LYMPHOCYTES # (AUTO) 0.9 K/uL (1.0-5.5); LYMPHOCYTES % (AUTO) 12.8 % (20.5-51.5); MEAN CORPUSCULAR HEMOGLOBIN 32 pg (27-31); MEAN CORPUSCULAR HGB CONC 34 % (32-36); MEAN CORPUSCULAR VOLUME 94 fL (79.0-98.0); MONOCYTES # (AUTO) 0.4 K/uL (0.0-1.0); MONOCYTES % (AUTO) 5.2 % (1.7-9.3); NEUTROPHILS # (AUTO) 5.5 K/uL (1.8-7.7); NEUTROPHILS % (AUTO) 78.6 % (40.0-70.0); PLATELET COUNT (AUTO) 55 K/uL (130-430); RED BLOOD CELL COUNT(AUTO) 2.42 MIL/uL (4.2-6.2); RED CELL DISTRIBUTION WIDTH 23.1 % (9.0-15.0)
[2022-08-10 06:13] LABS: ALBUMIN 1.4 g/dL (3.4-4.8); CALCIUM 7.9 mg/dL (8.4-11.0); CREATININE 3.01 mg/dL (0.55-1.30); TOTAL BILIRUBIN 2.8 mg/dL (0.0-1.0)
[2022-08-10] MEDS: MORPHINE 4 MG INJ. 4 MG/ML VIAL IVP PRN (06:13)
[2022-08-10] MEDS: INSULIN REGULAR, HUMAN 100 UNITS/ML, 3 ML VIAL (humuLIN R) SUBCUT PRN (06:13)
[2022-08-10 06:29] LABS: INR 1.5 (0.80-1.20)
[2022-08-10] MEDS: SUCRALFATE 1 GM/10 ML UDC GT SCH ×2 (07:00→17:00)
--- NOTE | 2022-08-10 08:00 | NUR ---
PATIENT STABLE VITALS SIGNS IN NORMAL LIMITS NOT COMPLAINING OF PAIN VITALS SIGNS IN NORMAL LIMITS SR 60 ON MONITOR TRACH TO VENT R 16 T450 PEEP 5 SFIO2 30%
[2022-08-10] MEDS: NS IV SCH (08:50)
[2022-08-10] MEDS: MICAFUNGIN SODIUM IV SCH (08:50)
[2022-08-10] MEDS: CHOLECALCIFEROL (VITAMIN D3) 2,000 UNIT TABLET NG SCH (09:00)
[2022-08-10] MEDS: METOCLOPRAMIDE HCL 10 MG/2 ML VIAL IVP SCH ×2 (09:05→21:52)
--- NOTE | 2022-08-10 09:53 | NUR ---
PATIENT STABLE VITALS SIGNS IN NORMAL LIMITS DIALYSIS STARTED NOW
[2022-08-10] MEDS ORDERED: ALBUMIN HUMAN 25% 200 ML IV ONE ×2 (10:36→11:00)
[2022-08-10] MEDS: CEFEPIME 2 GM in D5W 100 ML IV SCH (12:00)
[2022-08-10] MEDS ORDERED: HEPARIN SODIUM, PORCINE 10,000 UNITS/ 10 ML VIAL ONE (12:25)
[2022-08-10] MEDS ORDERED: HEPARIN SODIUM,PORCINE 5,000 UNITS/ML VIAL ONE (12:30)
--- NOTE | 2022-08-10 17:12 | NUR ---
PATIENT STABLE VITALS SIGNS IN NORMAL LIMITS AFTER DIALYSIS THE PATIENT START BLEEDING AND I HAVE TO GAVE FULL BATH AND CHANGE BINDER AND ALSO CHANGED THE WHOLE BAD WAITING FOR FRESH FROZEN PLASM TO BE READY TO GIVE
--- NOTE | 2022-08-10 17:25 | NUR ---
PATIENT IS BLEEDING FROM THE PEG TUBE I REINFORCE THE DRESSING AND I PLACE A NEW BINDER
--- NOTE | 2022-08-10 18:03 | NUR ---
RT NOTES 1540 pt found perfusely bleeding from trach and dialysis port, rn notified. pt cleaned up and absorbant pads along with clotting guaze pads placed over trach per charge master analyst advise for fresh trach wound.. new trach ties placed. will cont to monitor. Addendum: 08/10/22 at 1808 by Irene Ozuna RT Amended: Links added.
--- NOTE | 2022-08-10 19:29 | NUR ---
I CALL THE BANK ABOUT FFP AND THEY SAY IS NOT READY YET THEY WILL CALL US WHEN READY
--- NOTE | 2022-08-10 19:30 | NUR ---
RECEIVED SLEEPING, AROUSABLE, NODS HEAD TOYES OR NO.PATIENT HAS TRACHE TO VENT, VENT SETTINGS FOLLOWS:AC16, FIO2 30%, TV 450 AND PEEP 5. TRACHESITE ISBLEEDING, SAT WDL. SOCIAL WORK THERAPIST IS SHOWING NSR.BLOOD PRESSURES ARE LOW, LEVOPHED IS INFUSING AT 0.4 MCG/KG/MIN VIA RUE PICC.. ABDOMEN IS SOFTAND NON-DISTENDED. PEG TUBE SITEBLEEDING, NPO.THOMAS INTACT AND PATENT, DRAININGSMALL AMOUNT OF URINE. RECTAL TUBE INTACT.AFEBRILE.
--- NOTE | 2022-08-10 20:25 | NUR ---
FFP TRANSFUSION STARTED.
--- NOTE | 2022-08-10 21:20 | NUR ---
FAMILY MEMBER AT BEDSIDE - ASKING ABOUT BLEEDING AT TRACH SITE - RN INFORMED FAMILY ABOUT FFP RUNNING - GAUZE PRESENT ALONG WITH DRESSING AROUND TRACH SITE. OOZING NOTED AROUND TRACH AND NECK. RN STATED MD IS AWARE.
[2022-08-10] MEDS: NOREPINEPHRINE BITARTRATE 8 MG in D5W 242 ML IV PRN (21:56)
[2022-08-10] MEDS ORDERED: NOREPINEPHRINE 4 MG/4 ML VIAL IV ONE (22:25)
[2022-08-11] VITALS (30 sets, daily range): BP systolic 59–115
[2022-08-11] MEDS ORDERED: NOREPINEPHRINE 4 MG/4 ML VIAL IV ONE ×5 (01:31→08:27)
[2022-08-11] MEDS: IPRATROPIUM/ALBUTEROL SULFATE 3 ML AMPUL.NEB (DUONEB) INH SCH ×6 (03:25→23:13)
[2022-08-11] MEDS: ACETYLCYSTEINE 20% 4 ML VIAL (RT) INH SCH ×6 (03:28→23:13)
--- NOTE | 2022-08-11 03:30 | NUR ---
BLOOD PRESSURES ARE STILL LOW, LEVOPHED AT 1 MCG/KG/MIN, NOTIFIED DR. KABA, DOPAMINE ORDERED AND STARTED. NOTIFIED DR. KABA THAT THE TRACHE AND PEG SITES ARE STILL BLEEDING. DR. KABA WILL WAIT FOR THE LAB RESULTS THIS AM, DOES NOT WANT TO TRANSFUSE PATIENT WITH PRBC YET.
[2022-08-11] MEDS ORDERED: DOPamine PREMIX 250 ML IV ONE (03:40)
[2022-08-11] MEDS ORDERED: DOPamine PREMIX 250 ML IV PRN (03:45)
[2022-08-11 05:31] LABS: BASOPHILS # (AUTO) 0.1 K/uL (0.0-0.2); BASOPHILS % (AUTO) 0.5 % (0.0-2.0); EOSINOPHILS % (AUTO) 0.4 % (0.0-4.0); LYMPHOCYTES # (AUTO) 1.4 K/uL (1.0-5.5); LYMPHOCYTES % (AUTO) 11.4 % (20.5-51.5); MEAN CORPUSCULAR HEMOGLOBIN 31 pg (27-31); MEAN CORPUSCULAR HGB CONC 31 % (32-36); MEAN CORPUSCULAR VOLUME 101 fL (79.0-98.0); MONOCYTES # (AUTO) 0.9 K/uL (0.0-1.0); MONOCYTES % (AUTO) 7.6 % (1.7-9.3); NEUTROPHILS # (AUTO) 9.7 K/uL (1.8-7.7); NEUTROPHILS % (AUTO) 80.1 % (40.0-70.0); PLATELET COUNT (AUTO) 58 K/uL (130-430); RED CELL DISTRIBUTION WIDTH 24.2 % (9.0-15.0)
[2022-08-11 05:41] LABS: RED BLOOD CELL COUNT(AUTO) 1.61 MIL/uL (4.2-6.2)
[2022-08-11 05:42] LABS: HEMATOCRIT 16.2 % (36-54)
[2022-08-11 05:53] LABS: INR 2.1 (0.80-1.20); PROTHROMBIN TIME 21.2 SECS (9.5-12.5)
[2022-08-11 06:00] LABS: ALBUMIN 1.5 g/dL (3.4-4.8); CALCIUM 8.2 mg/dL (8.4-11.0); CREATININE 2.89 mg/dL (0.55-1.30); TOTAL BILIRUBIN 4.7 mg/dL (0.0-1.0)
--- NOTE | 2022-08-11 06:28 | NUR ---
NOTIFIED DR. KABA OF PATIENT'S HGB- 5.0 AND HCT OF 16.2, ORDERED TO TRANSFUSE 2 UNITS OF PRBC.
[2022-08-11] MEDS: SUCRALFATE 1 GM/10 ML UDC GT SCH ×2 (06:45→13:13)
--- NOTE | 2022-08-11 08:00 | NUR ---
PATIENT UNSTABLE BP DROOPING ALSO THE MAP IS ALSO GOING DOWN I AM GOING TO START THE TWO UNITS OF PRBC ORDER BY DOCTOR
--- NOTE | 2022-08-11 08:00 | NUR ---
PATIENT STABLE BUT AF 46 ON MONITOR DOCTOR IS AWARE WAITING FOR ORDER PULMONOLOGY DR EASON CAME TO VISIT HIM DOCTOR JARA (PROJECT SCIENTIST IS PUTTING ORDER NOW Addendum: 08/11/22 at 1408 by [facility], AMADEO CHILDS WRONG PATIENT
[2022-08-11] MEDS ORDERED: NS 500 ML IV ONE (08:15)
[2022-08-11] MEDS: CHOLECALCIFEROL (VITAMIN D3) 2,000 UNIT TABLET NG SCH (09:00)
[2022-08-11] MEDS ORDERED: INSULIN GLARGINE 100 UNITS/ML, 10 ML VIAL SUBCUT SCH (09:00)
[2022-08-11] MEDS: METOCLOPRAMIDE HCL 10 MG/2 ML VIAL IVP SCH ×2 (09:17→21:59)
[2022-08-11] MEDS: MICAFUNGIN SODIUM IV SCH (09:20)
[2022-08-11] MEDS: NS IV SCH (09:20)
[2022-08-11] MEDS ORDERED: ALBUMIN HUMAN 25% 100 ML IV ONE ×2 (09:50→10:00)
--- NOTE | 2022-08-11 10:30 | NUR ---
I JUST FINISH THE TWO UNITS OF PRBC SUCCESSFULLY PATIENT IS MORE STABLE NOW BP IS GOING UP I ALSO GAVE HIM A BATH AND ORAL CRE AND SUCTION WAS PERFORMED
[2022-08-11] MEDS: NOREPINEPHRINE BITARTRATE 32 MG in NS 218 ML IV PRN (11:06)
[2022-08-11] MEDS: CEFEPIME 2 GM in D5W 100 ML IV SCH (13:04)
[2022-08-11 13:18] LABS: BASOPHILS % (AUTO) 0.2 % (0.0-2.0); EOSINOPHILS % (AUTO) 0.3 % (0.0-4.0); HEMOGLOBIN 7.1 g/dL (14.0-18.0); LYMPHOCYTES # (AUTO) 0.8 K/uL (1.0-5.5); LYMPHOCYTES % (AUTO) 6.9 % (20.5-51.5); MEAN CORPUSCULAR HEMOGLOBIN 31 pg (27-31); MEAN CORPUSCULAR HGB CONC 32 % (32-36); MEAN CORPUSCULAR VOLUME 97 fL (79.0-98.0); MONOCYTES # (AUTO) 0.7 K/uL (0.0-1.0); NEUTROPHILS # (AUTO) 10.4 K/uL (1.8-7.7); NEUTROPHILS % (AUTO) 86.6 % (40.0-70.0); RED BLOOD CELL COUNT(AUTO) 2.26 MIL/uL (4.2-6.2); RED CELL DISTRIBUTION WIDTH 16.5 % (9.0-15.0)
[2022-08-11 13:25] LABS: PLATELET COUNT (AUTO) 35 K/uL (130-430)
--- NOTE | 2022-08-11 14:50 | NUR ---
PATIENT ALERT NOW STABLE VITALS SIGNS IN NORMAL LIMITS NOT COMPLAINING OF PAIN AT THIS TIME
--- NOTE | 2022-08-11 15:40 | NUR ---
I CALL THE BANK FOR MY PLATELETS AND THEY ARE NOT READY YET PATIENT STILL STABLE NOT BLEEDING AT THIS TIME ALERT NOT COMPLAINING OF PAIN
--- NOTE | 2022-08-11 18:01 | NUR ---
RT NOTES 1730 TRACH CARE DONE, ABSORBANT PAD PLACED. RN AWARE. Addendum: 08/11/22 at 1803 by Irene Ozuna RT Amended: Links added.
[2022-08-11 18:14] LABS: MEAN CORPUSCULAR HEMOGLOBIN 32 pg (27-31); MEAN CORPUSCULAR HGB CONC 33 % (32-36); MEAN CORPUSCULAR VOLUME 96 fL (79.0-98.0); PLATELET COUNT (AUTO) 69 K/uL (130-430); RED CELL DISTRIBUTION WIDTH 16.2 % (9.0-15.0); WHITE BLOOD COUNT (AUTO) 14.2 K/uL (4.8-10.8)
[2022-08-11 18:24] LABS: HEMATOCRIT 21.2 % (36-54)
[2022-08-11] MEDS: DEXTROSE 50% JECT 50 ML DISP.SYRIN IVP PRN (18:29)
--- NOTE | 2022-08-11 18:34 | NUR ---
PLATELETS 69 HEMOGLOBIN 7.0 ACCUTECHECK 64 I GAVE D50 BUT PATIENT STABLE VITALS SIGNS IN NORMAL LIMITS ABLE TO TRACK AND LAUGH
--- NOTE | 2022-08-11 19:22 | NUR ---
ONE UNIT OF PLATELETS JUST FINISH
[2022-08-11 19:51] LABS: BAND % (MANUAL) 15 % (0-6); BASOPHILS % (MANUAL) 0 % (0-2); EOSINOPHILS % (MANUAL) 0 % (0-7); LYMPHOCYTES % (MANUAL) 7 % (20-46); MONOCYTES % (MANUAL) 4 % (0-11)
[2022-08-12] VITALS (34 sets, daily range): BP systolic 70–163
[2022-08-12] MEDS: IPRATROPIUM/ALBUTEROL SULFATE 3 ML AMPUL.NEB (DUONEB) INH SCH ×6 (03:45→23:13)
[2022-08-12] MEDS: ACETYLCYSTEINE 20% 4 ML VIAL (RT) INH SCH ×6 (03:46→23:13)
[2022-08-12] MEDS: SUCRALFATE 1 GM/10 ML UDC GT SCH ×2 (06:34→17:00)
[2022-08-12] MEDS: NOREPINEPHRINE BITARTRATE 32 MG in NS 218 ML IV PRN (06:34)
[2022-08-12] MEDS: DEXTROSE 50% JECT 50 ML DISP.SYRIN IVP PRN (06:36)
[2022-08-12 07:24] LABS: HEPATITIS C VIRUS AB Positive >0.9 s/co (0.0-0.7)
--- NOTE | 2022-08-12 07:47 | NUR ---
PATIENT STABLE NOT MORE BLEEDING JUST FINISH FFP VITALS SIGNS IN NORMAL BLEEDING SR 79 ON MONITOR
[2022-08-12 08:15] LABS: HEPATITIS C VIRUS AB Positive >0.9 s/co (0.0-0.7)
[2022-08-12] MEDS ORDERED: PROPOFOL DRIP 100 ML IV PRN (08:45)
[2022-08-12] MEDS: MICAFUNGIN SODIUM IV SCH (09:00)
[2022-08-12] MEDS: METOCLOPRAMIDE HCL 10 MG/2 ML VIAL IVP SCH ×2 (09:00→20:42)
[2022-08-12] MEDS: NS IV SCH (09:00)
[2022-08-12 09:27] LABS: BASOPHILS % (AUTO) 0.5 % (0.0-2.0); EOSINOPHILS % (AUTO) 0.2 % (0.0-4.0); MEAN CORPUSCULAR HEMOGLOBIN 32 pg (27-31); MEAN CORPUSCULAR HGB CONC 33 % (32-36); MEAN CORPUSCULAR VOLUME 96 fL (79.0-98.0); MONOCYTES # (AUTO) 0.5 K/uL (0.0-1.0); MONOCYTES % (AUTO) 5.7 % (1.7-9.3); NEUTROPHILS # (AUTO) 7.6 K/uL (1.8-7.7); NEUTROPHILS % (AUTO) 82.6 % (40.0-70.0); RED BLOOD CELL COUNT(AUTO) 2.05 MIL/uL (4.2-6.2); RED CELL DISTRIBUTION WIDTH 16.2 % (9.0-15.0); WHITE BLOOD COUNT (AUTO) 9.2 K/uL (4.8-10.8)
[2022-08-12] MEDS ORDERED: ALBUMIN HUMAN 25% 200 ML IV ONE ×2 (09:30→09:46)
[2022-08-12 09:34] LABS: HEMATOCRIT 19.6 % (36-54); HEMOGLOBIN 6.5 g/dL (14.0-18.0)
[2022-08-12 09:35] LABS: PLATELET COUNT (AUTO) 44 K/uL (130-430)
[2022-08-12 09:45] LABS: INR 2.8 (0.80-1.20); PROTHROMBIN TIME 27.2 SECS (9.5-12.5)
[2022-08-12 10:16] LABS: ALBUMIN 1.7 g/dL (3.4-4.8); CALCIUM 7.9 mg/dL (8.4-11.0); CREATININE 3.24 mg/dL (0.55-1.30); TOTAL BILIRUBIN 5.6 mg/dL (0.0-1.0)
[2022-08-12] MEDS: CHOLECALCIFEROL (VITAMIN D3) 2,000 UNIT TABLET NG SCH (10:47)
--- NOTE | 2022-08-12 12:21 | NUR ---
RN DID NOT MEDICALLY CLEAR PATIENT FOR PT TREATMENT D/T BLEEDING AND UNSTABLE. WILL TRY AGAIN TOMORROW.
[2022-08-12] MEDS: ALBUMIN HUMAN 25% 50 ML IV SCH ×3 (12:44→20:43)
[2022-08-12] MEDS: CEFEPIME 2 GM in D5W 100 ML IV SCH (12:44)
[2022-08-12] MEDS ORDERED: SODIUM BICARBONATE 8.4% JECT 50 MEQ/50 ML SYRINGE IVP ONE (13:30)
[2022-08-12] MEDS: SODIUM POLYSTYRENE SULFONATE 15 GM/60 ML UDBTL PO ONE ×2 (13:30→14:04)
[2022-08-12] MEDS ORDERED: SODIUM BICARBONATE 8.4% JECT 50 MEQ/50 ML SYRINGE ONE ×2 (13:42→14:49)
[2022-08-12] MEDS ORDERED: PHYTONADIONE 10 MG in NS 50 ML IV ONE (14:45)
[2022-08-12] MEDS: SODIUM BICARBONATE 8.4% JECT 150 MEQ in D5W 1,000 ML IVP SCH (14:54)
--- NOTE | 2022-08-12 16:11 | NUR ---
I WENT TO GAVE KAYSALATE AND PURE BLOOD COMING FROM G TUBE I AM CALLING DOCTOR SHARON TO LETS HIM KNOW I ALL READY START THE FIRST UNIT OF PRBC
--- NOTE | 2022-08-12 16:16 | NUR ---
I INFORMED DOCTOR RODRIGUEZ ABOUT PATIENT BLEEDING FROM GTUBE AND HIM ORDER TO CALL THE SURGEON DOCTOR FROYLAN
[2022-08-12] MEDS ORDERED: CALCIUM CHLORIDE 1 GM/10ML VIAL (13.6 mEq Ca++/VIAL) IV ONE (16:30)
--- NOTE | 2022-08-12 16:49 | NUR ---
DOCTOR FROYLAN CALL BACK AND INFORMED ABOUT THE PATIENT BLEEDING AND HE WILL CALL BACK DOCTOR MICHAEL
[2022-08-12] MEDS ORDERED: DEXTROSE 50% JECT 50 ML DISP.SYRIN IVP ONE (17:15)
[2022-08-12] MEDS ORDERED: INSULIN REGULAR, HUMAN 10 UNITS/0.1 ML, 3 ML VIAL IVP ONE (17:15)
[2022-08-12] MEDS ORDERED: CALCIUM CHLORIDE 1 GM/10 ML DISP.SYRIN (14 mEq Ca++/SYR) ONE (17:16)
[2022-08-12] MEDS ORDERED: CALCIUM CHLORIDE 1 GM in NS 100 ML IV ONE (17:30)
[2022-08-12] MEDS ORDERED: CALCIUM CHLORIDE 1 GM/10 ML DISP.SYRIN (14 mEq Ca++/SYR) IV ONE (17:45)
[2022-08-12] MEDS ORDERED: CALCIUM GLUCONATE 2 GM in NS 100 ML IV ONE (19:15)
--- NOTE | 2022-08-12 19:30 | NUR ---
RECEIVED PATIENT OBTUNDED. TRACHEOSTOMY TO VENT, AC 16, FIO2 30%, TV 450 AND PEEP 5. SUCTIONED PRN, SAT 96%. TRACHE SITE , NO BLEEDING NOTED. NURSE ADVISOR IS SHOWING NSR, ON LEVOPHED AT 0.5 MCG/KG/MIN. RUE PICC LINE. RIGHT IJ HD CATH, WILL HAVE HEMODIALYSIS TONIGHT. WILL CONTINUE TO MONITOR BLOOD PRESSURE. ABDOMEN IS DISTENDED. PEG TUBE FEEDING WITH DARK FLUID. WILL MONITOR FOR BLEEDING. THOMAS AND RECTAL TUBES ARE PATENT.
--- NOTE | 2022-08-12 19:43 | NUR ---
PATIENT STABLE VITALS SIGNS IN NORMAL LIMITS REPORT AND ENDORSE CARE JACQUI CHILDS
[2022-08-13] VITALS (30 sets, daily range): BP systolic 69–114
[2022-08-13] MEDS: ALBUMIN HUMAN 25% 50 ML IV SCH ×3 (01:00→09:00)
[2022-08-13 02:05] LABS: BASOPHILS % (AUTO) 0.7 % (0.0-2.0); EOSINOPHILS # (AUTO) 0.3 K/uL (0.0-0.4); EOSINOPHILS % (AUTO) 4.8 % (0.0-4.0); HEMATOCRIT 24.4 % (36-54); HEMOGLOBIN 8.4 g/dL (14.0-18.0); LYMPHOCYTES # (AUTO) 1.3 K/uL (1.0-5.5); LYMPHOCYTES % (AUTO) 22.1 % (20.5-51.5); MEAN CORPUSCULAR HEMOGLOBIN 30 pg (27-31); MEAN CORPUSCULAR HGB CONC 34 % (32-36); MEAN CORPUSCULAR VOLUME 87 fL (79.0-98.0); MONOCYTES # (AUTO) 0.4 K/uL (0.0-1.0); MONOCYTES % (AUTO) 6.2 % (1.7-9.3); NEUTROPHILS # (AUTO) 3.8 K/uL (1.8-7.7); NEUTROPHILS % (AUTO) 66.2 % (40.0-70.0); RED BLOOD CELL COUNT(AUTO) 2.81 MIL/uL (4.2-6.2); RED CELL DISTRIBUTION WIDTH 16.1 % (9.0-15.0); WHITE BLOOD COUNT (AUTO) 5.7 K/uL (4.8-10.8)
[2022-08-13] MEDS: DEXTROSE 50% JECT 50 ML DISP.SYRIN IVP PRN ×3 (02:14→10:56)
[2022-08-13 02:27] LABS: CALCIUM 8.1 mg/dL (8.4-11.0); CREATININE 1.81 mg/dL (0.55-1.30)
[2022-08-13 03:20] LABS: PLATELET COUNT (AUTO) 22 K/uL (130-430)
[2022-08-13] MEDS: ACETYLCYSTEINE 20% 4 ML VIAL (RT) INH SCH ×6 (03:24→23:00)
[2022-08-13] MEDS: IPRATROPIUM/ALBUTEROL SULFATE 3 ML AMPUL.NEB (DUONEB) INH SCH ×6 (03:24→23:00)
[2022-08-13] MEDS: NOREPINEPHRINE BITARTRATE 32 MG in NS 218 ML IV PRN ×2 (05:02→14:10)
[2022-08-13 06:02] LABS: ALANINE AMINOTRANSFERASE 3526 U/L (12-78); ANION GAP 18 (5-15); ASPARTATE AMINOTRANSFERASE < 5 U/L (10-37); CHLORIDE 98 mmol/L (98-107); CREATININE 2.09 mg/dL (0.55-1.30); GFR AFRICAN AMERICAN 43 mL/min (>90); GLUCOSE 58 mg/dL (70-99); UREA NITROGEN, BLOOD 19 mg/dL (8-21)
[2022-08-13 06:03] LABS: ALBUMIN 2.6 g/dL (3.4-4.8); PHOSPHORUS 5.1 mg/dL (2.7-4.5)
[2022-08-13] MEDS: SUCRALFATE 1 GM/10 ML UDC GT SCH ×2 (07:00→17:00)
[2022-08-13 07:34] LABS: BASOPHILS % (AUTO) 0.6 % (0.0-2.0); EOSINOPHILS # (AUTO) 0.3 K/uL (0.0-0.4); EOSINOPHILS % (AUTO) 4.9 % (0.0-4.0); HEMOGLOBIN 7.3 g/dL (14.0-18.0); LYMPHOCYTES # (AUTO) 1.2 K/uL (1.0-5.5); LYMPHOCYTES % (AUTO) 20.9 % (20.5-51.5); MEAN CORPUSCULAR HEMOGLOBIN 31 pg (27-31); MEAN CORPUSCULAR HGB CONC 35 % (32-36); MEAN CORPUSCULAR VOLUME 88 fL (79.0-98.0); MONOCYTES # (AUTO) 0.4 K/uL (0.0-1.0); MONOCYTES % (AUTO) 7.7 % (1.7-9.3); NEUTROPHILS # (AUTO) 3.7 K/uL (1.8-7.7); NEUTROPHILS % (AUTO) 65.9 % (40.0-70.0); RED BLOOD CELL COUNT(AUTO) 2.38 MIL/uL (4.2-6.2); RED CELL DISTRIBUTION WIDTH 16.2 % (9.0-15.0); WHITE BLOOD COUNT (AUTO) 5.6 K/uL (4.8-10.8)
[2022-08-13 07:38] LABS: PLATELET COUNT (AUTO) 20 K/uL (130-430)
[2022-08-13 08:15] LABS: INR 6.9 (0.80-1.20); PROTHROMBIN TIME 65.1 SECS (9.5-12.5)
[2022-08-13] MEDS: CHOLECALCIFEROL (VITAMIN D3) 2,000 UNIT TABLET NG SCH (08:20)
[2022-08-13] MEDS: METOCLOPRAMIDE HCL 10 MG/2 ML VIAL IVP SCH ×2 (08:24→21:54)
[2022-08-13] MEDS: MICAFUNGIN SODIUM IV SCH (08:25)
[2022-08-13] MEDS: NS IV SCH (08:25)
--- NOTE | 2022-08-13 11:58 | NUR ---
RN DID NOT MEDICALLY CLEAR PATIENT FOR PT TREATMENT. WILL TRY AGAIN TOMORROW.
[2022-08-13] MEDS: CEFEPIME 2 GM in D5W 100 ML IV SCH (12:25)
[2022-08-13] MEDS ORDERED: METHYLPREDNISOLONE SOD SUCC 40 MG/ML VIAL IVP ONE (13:45)
[2022-08-13] MEDS: SODIUM BICARBONATE 8.4% JECT 150 MEQ in D5W 1,000 ML IVP SCH (14:11)
[2022-08-13] MEDS ORDERED: *TPN PER PHARMACY XX PRN (15:30)
[2022-08-13] MEDS ORDERED: D10W 1,000 ML IV SCH (15:30)
[2022-08-13] MEDS ORDERED: DEXTROSE 50% JECT 50 ML DISP.SYRIN IVP PRN (15:30)
[2022-08-13 22:44] LABS: BASOPHILS % (AUTO) 0.2 % (0.0-2.0); EOSINOPHILS # (AUTO) 0.1 K/uL (0.0-0.4); EOSINOPHILS % (AUTO) 1.5 % (0.0-4.0); LYMPHOCYTES # (AUTO) 0.5 K/uL (1.0-5.5); LYMPHOCYTES % (AUTO) 9.4 % (20.5-51.5); MEAN CORPUSCULAR HEMOGLOBIN 30 pg (27-31); MEAN CORPUSCULAR HGB CONC 34 % (32-36); MEAN CORPUSCULAR VOLUME 89 fL (79.0-98.0); MONOCYTES # (AUTO) 0.6 K/uL (0.0-1.0); MONOCYTES % (AUTO) 10.5 % (1.7-9.3); NEUTROPHILS # (AUTO) 4.3 K/uL (1.8-7.7); NEUTROPHILS % (AUTO) 78.4 % (40.0-70.0); PLATELET COUNT (AUTO) 59 K/uL (130-430); RED BLOOD CELL COUNT(AUTO) 2.07 MIL/uL (4.2-6.2); RED CELL DISTRIBUTION WIDTH 16.7 % (9.0-15.0); WHITE BLOOD COUNT (AUTO) 5.5 K/uL (4.8-10.8)
[2022-08-13 22:55] LABS: ANION GAP 22 (5-15); CALCIUM 8.1 mg/dL (8.4-11.0); CHLORIDE 96 mmol/L (98-107); CREATININE 2.62 mg/dL (0.55-1.30); GFR AFRICAN AMERICAN 33 mL/min (>90); GLUCOSE 93 mg/dL (70-99); UREA NITROGEN, BLOOD 23 mg/dL (8-21)
[2022-08-13 23:12] LABS: HEMATOCRIT 18.5 % (36-54); HEMOGLOBIN 6.3 g/dL (14.0-18.0)
[2022-08-13 23:14] LABS: ALANINE AMINOTRANSFERASE 4140 U/L (12-78); ALBUMIN 2.5 g/dL (3.4-4.8); ASPARTATE AMINOTRANSFERASE < 5 U/L (10-37); TOTAL BILIRUBIN 7.1 mg/dL (0.0-1.0)
[2022-08-13] MEDS ORDERED: ALBUMIN HUMAN 25% 100 ML IV ONE (23:45)
[2022-08-13] MEDS ORDERED: NS 250 ML IV ONE (23:45)
[2022-08-14] VITALS: BP_SYST 80
[2022-08-14] MEDS ORDERED: ALBUMIN HUMAN 25% 100 ML IV ONE (00:17)
[2022-08-14 01:00] VITALS: BP_SYST 86
[2022-08-14 02:00] VITALS: BP_SYST 96
--- NOTE | 2022-08-14 02:54 | NUR ---
PATIENTS HR SLOWED TO ASYSTOLE/PEA. COULD NOT OBTAIN PULSE. CODE BLUE CALLED. SEE CODE BLUE RECORD.
[2022-08-14] MEDS ORDERED: SODIUM BICARBONATE 8.4% JECT 50 MEQ/50 ML SYRINGE IVP ONE (03:05)
[2022-08-14] MEDS ORDERED: CALCIUM CHLORIDE 1 GM/10 ML DISP.SYRIN (14 mEq Ca++/SYR) IV ONE (03:05)
[2022-08-14] MEDS ORDERED: EPINEPHrine JECT 0.1 MG/ML SYR IVP ONE (03:05)
--- NOTE | 2022-08-14 03:30 | NUR ---
PATIENTS MOTHER NOTIFIED OF . TEARFUL, STATES SHE WILL CALL [employer] IN THE MORNING AND SPEAK WITH HANDKERCHIEF MAKER.
--- NOTE | 2022-08-14 03:36 | NUR ---
CODE BLUE CALLED AT [facility] IN PROGRESS WHEN ENTERING ROOM. PT AT 0306
[2022-08-14] MEDS ORDERED: METHYLPREDNISOLONE SOD SUCC 40 MG/ML VIAL IVP SCH (09:00)
--- NOTE | 2022-08-14 10:50 | NUR ---
Personal Belongings/Body Disposition/Authorization: Spoke with next of kin (Tracy Bee), and she gave authorization for her former (patient's father) Hipolito Bee Sr. to garbage pick up worker the patient's belongings. She also authorized Hipolito Bee Sr. to partake in patient's disposition/planning (mortuary, etc.).
== END 2022-08-14 03:06 | DRG 5 ==
LOC: SED 11:31 → STU 14:57 → SIC 07-23 11:38
PROVIDERS: ADMIT Internal Medicine; ATTEND Internal Medicine
PROC: 5A1955Z Respiratory Ventilation, Greater than 96 Consecutive Hours (ICD-10-PCS; principal; 2022-07-23)
PROC: 0BH17EZ Insertion of Endotracheal Airway into Trachea, Via Natural or Artificial Opening (ICD-10-PCS; 2022-07-23)
PROC: 5A1D70Z Performance of Urinary Filtration, Intermittent, Less than 6 Hours Per Day (ICD-10-PCS; 2022-07-26)
PROC: 30233R1 Transfusion of Nonautologous Platelets into Peripheral Vein, Percutaneous Approach (ICD-10-PCS; 2022-07-27)
PROC: 5A1D70Z Performance of Urinary Filtration, Intermittent, Less than 6 Hours Per Day (ICD-10-PCS; 2022-07-27)
PROC: 30233M1 Transfusion of Nonautologous Plasma Cryoprecipitate into Peripheral Vein, Percutaneous Approach (ICD-10-PCS; 2022-07-28)
PROC: 5A1D70Z Performance of Urinary Filtration, Intermittent, Less than 6 Hours Per Day (ICD-10-PCS; 2022-07-28)
PROC: 30233N1 Transfusion of Nonautologous Red Blood Cells into Peripheral Vein, Percutaneous Approach (ICD-10-PCS; 2022-07-28)
PROC: 05HM33Z Insertion of Infusion Device into Right Internal Jugular Vein, Percutaneous Approach (ICD-10-PCS; 2022-07-29)
PROC: B543ZZA Ultrasonography of Right Jugular Veins, Guidance (ICD-10-PCS; 2022-07-29)
PROC: 02HV33Z Insertion of Infusion Device into Superior Vena Cava, Percutaneous Approach (ICD-10-PCS; 2022-07-29)
PROC: 5A1D70Z Performance of Urinary Filtration, Intermittent, Less than 6 Hours Per Day (ICD-10-PCS; 2022-07-29)
PROC: 5A1D70Z Performance of Urinary Filtration, Intermittent, Less than 6 Hours Per Day (ICD-10-PCS; 2022-07-30)
PROC: 5A1D70Z Performance of Urinary Filtration, Intermittent, Less than 6 Hours Per Day (ICD-10-PCS; 2022-07-31)
PROC: 5A1D70Z Performance of Urinary Filtration, Intermittent, Less than 6 Hours Per Day (ICD-10-PCS; 2022-08-01)
PROC: 5A1D70Z Performance of Urinary Filtration, Intermittent, Less than 6 Hours Per Day (ICD-10-PCS; 2022-08-02)
PROC: 5A1D70Z Performance of Urinary Filtration, Intermittent, Less than 6 Hours Per Day (ICD-10-PCS; 2022-08-04)
PROC: 5A1D70Z Performance of Urinary Filtration, Intermittent, Less than 6 Hours Per Day (ICD-10-PCS; 2022-08-06)
PROC: 5A1D70Z Performance of Urinary Filtration, Intermittent, Less than 6 Hours Per Day (ICD-10-PCS; 2022-08-08)
PROC: 0B110F4 Bypass Trachea to Cutaneous with Tracheostomy Device, Open Approach (ICD-10-PCS; 2022-08-09)
PROC: 0DH64UZ Insertion of Feeding Device into Stomach, Percutaneous Endoscopic Approach (ICD-10-PCS; 2022-08-09)
PROC: 5A1D70Z Performance of Urinary Filtration, Intermittent, Less than 6 Hours Per Day (ICD-10-PCS; 2022-08-10)
PROC: 5A1D70Z Performance of Urinary Filtration, Intermittent, Less than 6 Hours Per Day (ICD-10-PCS; 2022-08-12)
PROC: 5A12012 Performance of Cardiac Output, Single, Manual (ICD-10-PCS; 2022-08-14)
DX: A41.01 Sepsis due to Methicillin susceptible Staphylococcus aureus (principal); N17.0 Acute kidney failure with tubular necrosis; D65 Disseminated intravascular coagulation [defibrination syndrome]; J69.0 Pneumonitis due to inhalation of food and vomit; G93.41 Metabolic encephalopathy; R65.21 Severe sepsis with septic shock; R57.1 Hypovolemic shock; L89.154 Pressure ulcer of sacral region, stage 4; D63.1 Anemia in chronic kidney disease; E43 Unspecified severe protein-calorie malnutrition; D68.4 Acquired coagulation factor deficiency; J96.01 Acute respiratory failure with hypoxia; E11.65 Type 2 diabetes mellitus with hyperglycemia; E87.0 Hyperosmolality and hypernatremia; E87.6 Hypokalemia; B18.2 Chronic viral hepatitis C; E27.40 Unspecified adrenocortical insufficiency; E83.42 Hypomagnesemia; E83.51 Hypocalcemia; E86.0 Dehydration; E88.09 Other disorders of plasma-protein metabolism, not elsewhere classified; F17.200 Nicotine dependence, unspecified, uncomplicated; I10 Essential (primary) hypertension; Z68.25 Body mass index [BMI] 25.0-25.9, adult; Z20.822 Contact with and (suspected) exposure to COVID-19; I49.3 Ventricular premature depolarization; F15.10 Other stimulant abuse, uncomplicated; K70.11 Alcoholic hepatitis with ascites; J44.9 Chronic obstructive pulmonary disease, unspecified; J44.0 Chronic obstructive pulmonary disease with (acute) lower respiratory infection; G89.29 Other chronic pain; D68.9 Coagulation defect, unspecified; F10.20 Alcohol dependence, uncomplicated; E87.20 Acidosis, unspecified; N28.9 Disorder of kidney and ureter, unspecified; F19.10 Other psychoactive substance abuse, uncomplicated; K29.70 Gastritis, unspecified, without bleeding; K74.60 Unspecified cirrhosis of liver; N39.0 Urinary tract infection, site not specified; B19.20 Unspecified viral hepatitis C without hepatic coma; J45.909 Unspecified asthma, uncomplicated; K80.20 Calculus of gallbladder without cholecystitis without obstruction; Z74.01 Bed confinement status; Z79.4 Long term (current) use of insulin; Z79.82 Long term (current) use of aspirin; Z79.899 Other long term (current) drug therapy; Z93.0 Tracheostomy status; Z93.1 Gastrostomy status; Z99.2 Dependence on renal dialysis; Z59.00 Homelessness unspecified
CPT/HCPCS: 36415; 36600; 70450-TC; 70551; 71045; 76376; 76700-TC; 80048; 80053; 80074; 80202; 80307; 81000; 82009; 82105; 82140; 82435; 82570; 82803-TC; 82947; 82962; 83037; 83605; 83690; 83735; 83880; 84100; 84132; 84302; 84443; 84484; 85007; 85025; 85027; 85384; 85610-TC; 85651-TC; 85730-TC; 86480; 86803; 86886; 86900; 86901; 86920; 87040; 87070-TC; 87081; 87086; 87186-TC; 87205-TC; 90935; 90937; 92610-GN; 92950; 93005; 93306; 93971; 94002; 94003; 94640; 94668; 94760; 96361; 96365; 96375; 97110-GP; 97163-GP; 99291; C1751; C9113; G0378; J0171; J0610; J0692; J0696; J1030; J1265; J1450; J1642; J1644; J1815; J1940; J1956; J2020; J2060; J2250; J2270; J2405; J2704; J2765; J3010; J3370; J3430; J3480; J3490; J7030; J7040; J7050; J7060; J7608; P9021; P9034; P9041; P9046; P9059; Q9964; Q9967